=== PATIENT | female | born 1935 | race Caucasian/White ===

== ENCOUNTER 2016-08-21 07:08 | Day surgery (SDC) | payer MEDICARE ==
[~2016-08-21] VITALS: Ht 149.9 cm; Wt 53.5 kg
[~2016-08-21 07:08] MED LIST: ACETAMINOPHEN 325 MG TAB PO PRN; ASPI81TA85 PO; ATEN50TA2 PO; BSS with VANC/TOB/EPI for EYE CASES IR ONE; CLOP75TA2 PO; CYCLOPENTOLATE 2% OPHTH SOLN OS ONE; FOSA70TA PO; HEALON DUET (HEALON 10MG/ML 0.55ML & HEALON ENDOCOAT 30MG/ML 0.85ML) As Ordered ONE; LIDOCAINE 1% SDV 5 ML VIAL As Ordered ONE; LIDOCAINE 4% INJ 5 ML AMP OU ONE; LOSA50TA20 PO; MOXIFLOXACIN IN BSS 0.25MG/0.25ML INTRACAMERAL INJ (OR EYE ONLY)(J2280) As Ordered ONE; OFLOXACIN 0.3 % (OCUFLOX) OPTH SOL 5ML OS ONE; PHENYLEPHRINE 2.5% OPHTH SOL 2ML OS ONE; POVIDONE-IODINE 5% OPHTH PREP SOL 30ML As Ordered ONE; PRAV40TA2 PO; PROPARACAINE 0.5% OPHTH SOL 15ML OS PRN; TRIAMCINOLONE PRES FR 40 MG/ML 1ML(TRIESENCE)(OR EYE ONLY)(J3300 PER 1MG) As Ordered ONE; TROPICAMIDE 1% OPHTH SOLN 2 ML OS ONE
[2016-08-21] MEDS ORDERED: AcetaZOLAMIDE 500 MG ER CAP PO ONE (07:30)
[2016-08-21] MEDS ORDERED: TRIMETHOBENZAMIDE 300 MG CAP PO PRN (07:30)
[2016-08-21] MEDS ORDERED: KETOROLAC 0.5% OPHTH SOLN OS ONE (07:30)
[2016-08-21] MEDS ORDERED: fentaNYL 100 MCG/2 ML INJECTION (J3010) As Ordered ONE (09:46)
[2016-08-21] MEDS ORDERED: MIDAZOLAM INJ 2 MG/2 ML VIAL (J2250) As Ordered ONE (09:46)
[2016-08-21] MEDS ORDERED: ONDANSETRON 4MG/2ML VIAL (J2405) As Ordered ONE (11:03)
[2016-08-21 11:20] VITALS: BP 127/59
[2016-08-21] MEDS ORDERED: ONDANSETRON 4MG/2ML VIAL (J2405) IV PRN (11:30)
[2016-08-21] MEDS ORDERED: D5W/0.2% SODIUM CHLORIDE 1,000 ML IV SCH (11:30)
== END 2016-08-21 13:30 | disposition home or self-care (01) ==
LOC: M SDC 07:08
PROVIDERS: ATTEND Ophthalmology
DX: H26.9 Unspecified cataract (principal); I12.9 Hypertensive chronic kidney disease with stage 1 through stage 4 chronic kidney disease, or unspecified chronic kidney disease; E78.00 Pure hypercholesterolemia, unspecified; I73.9 Peripheral vascular disease, unspecified; R73.03 Prediabetes; M81.0 Age-related osteoporosis without current pathological fracture; F17.210 Nicotine dependence, cigarettes, uncomplicated; R53.83 Other fatigue; K59.04 Chronic idiopathic constipation; N18.3 Chronic kidney disease, stage 3 (moderate); M16.12 Unilateral primary osteoarthritis, left hip; Z79.899 Other long term (current) drug therapy; Z79.82 Long term (current) use of aspirin
CPT/HCPCS: 66984; J2250; J2280; J2405; J3010; J3300; V2632

== ENCOUNTER 2018-04-16 11:18 | Day surgery (SDC) | payer MEDICARE ==
[2018-04-16] MEDS: MORPHINE 2 MG/ML 1ML SYRINGE (J2270) IV ×2 (12:52→18:01)
[2018-04-16] MEDS: HYDROMORPHONE HCL 0.5 MG/ 0.5 ML SYRINGE (J1170 PER 1) IV (14:16)
[2018-04-16 15:39] LABS: ANION GAP 5 MEQ/L (8-16); BLOOD UREA NITROGEN 18 MG/DL (7-18); CALCIUM LEVEL 9.7 MG/DL (8.8-10.2); CARBON DIOXIDE LEVEL 28 MEQ/L (21-32); CHLORIDE LEVEL 109 MEQ/L (98-107); CREATININE FOR GFR 0.94 MG/DL (0.55-1.30); GLOMERULAR FILTRATION RATE > 60.0 (>32); GLUCOSE, FASTING 145 MG/DL (70-100); POTASSIUM SERUM 5.1 MEQ/L (3.5-5.1); SODIUM LEVEL 142 MEQ/L (136-145)
[2018-04-16] MEDS ORDERED: ONDANSETRON 4MG/2ML VIAL (J2405) As Ordered (16:22)
[2018-04-16] MEDS: ONDANSETRON 4MG/2ML VIAL (J2405) IV (16:24)
[2018-04-16] MEDS ORDERED: fentaNYL 100 MCG/2 ML INJECTION (J3010) As Ordered (19:43)
[2018-04-16] MEDS ORDERED: PROPOFOL 200 MG/20 ML VIAL As Ordered (19:43)
[2018-04-16] MEDS ORDERED: LR 1,000 ML IV (20:30)
[2018-04-16] MEDS ORDERED: ONDANSETRON 4MG/2ML VIAL (J2405) IV (20:30)
[2018-04-16] MEDS ORDERED: PERCOCET 5MG/325MG TAB PO (20:30)
[2018-04-16] MEDS ORDERED: fentaNYL 100 MCG/2 ML INJECTION (J3010) IV (20:30)
[2018-04-16] MEDS ORDERED: NS 1,000 ML IV (20:45)
== END 2018-04-16 21:25 | disposition home or self-care (01) ==
LOC: M SDC 21:25 → M ED 11:18 → M SDC 17:52
DX: S43.004A Unspecified dislocation of right shoulder joint, initial encounter (principal); W19.XXXA Unspecified fall, initial encounter; Y92.000 Kitchen of unspecified non-institutional (private) residence as the place of occurrence of the external cause; Y99.9 Unspecified external cause status; Y93.89 Activity, other specified; I10 Essential (primary) hypertension; E78.5 Hyperlipidemia, unspecified; Z79.899 Other long term (current) drug therapy; Z79.82 Long term (current) use of aspirin
CPT/HCPCS: 23655

== ENCOUNTER → 2018-06-06 | Outpatient (CLI) | payer MEDICARE ==
[~2018-06-06] MED LIST changes: -ACETAMINOPHEN 325 MG TAB PO PRN; -BSS with VANC/TOB/EPI for EYE CASES IR ONE; -CYCLOPENTOLATE 2% OPHTH SOLN OS ONE; -HEALON DUET (HEALON 10MG/ML 0.55ML & HEALON ENDOCOAT 30MG/ML 0.85ML) As Ordered ONE; -LIDOCAINE 1% SDV 5 ML VIAL As Ordered ONE; -LIDOCAINE 4% INJ 5 ML AMP OU ONE; -LOSA50TA20 PO; +LOSA50TA88 PO; -MOXIFLOXACIN IN BSS 0.25MG/0.25ML INTRACAMERAL INJ (OR EYE ONLY)(J2280) As Ordered ONE; -OFLOXACIN 0.3 % (OCUFLOX) OPTH SOL 5ML OS ONE; -PHENYLEPHRINE 2.5% OPHTH SOL 2ML OS ONE; -POVIDONE-IODINE 5% OPHTH PREP SOL 30ML As Ordered ONE; -PROPARACAINE 0.5% OPHTH SOL 15ML OS PRN; -TRIAMCINOLONE PRES FR 40 MG/ML 1ML(TRIESENCE)(OR EYE ONLY)(J3300 PER 1MG) As Ordered ONE; -TROPICAMIDE 1% OPHTH SOLN 2 ML OS ONE
--- NOTE | 2018-06-06 19:41 | REP ---
MRI RIGHT SHOULDER: TECHNIQUE: Axial T2 fat sat, coronal oblique T1, T2 fat sat, post arthrogram axial T1 fat sat, proton density, coronal oblique T1 fat sat, T2 sat, sagittal oblique T2 fat sat, ABER T1 fat sat. There are complete full thickness tears of the supraspinatus and infraspinatus tendon, with retraction of approximately 3.5 cm. There appears to be tendinosis of the subscapularis. There are moderate hypertrophic degenerative changes of the acromioclavicular joint with subchondral marrow edema. Acromion is type 1. Biceps tendon is seen within the bicipital groove, but superiorly the tendon appears to be quite thin with increased signal and I am suspicious of a tear of the proximal biceps tendon. I do not see an intact insertion onto the superior labrum. There appears to be a small Hill-Sachs deformity of the superolateral humeral head. No abnormal signal is seen in the deltoid muscle. There is fraying of the anterior superior aspect of the labrum. Otherwise no labral tear is seen. There is some minor subchondral marrow edema and cystic change in the humerus and glenoid. There is mild to moderate diffuse chondromalacia at the glenohumeral joint. Moderate fluid is seen in the joint extending to the subacromial subdeltoid bursae. IMPRESSION: Complete full thickness tear supraspinatus and infraspinatus tendons with retraction of the musculotendinous junction 3.5 cm. Tendinosis subscapularis. Moderate hypertrophic degenerative change acromioclavicular joint. I suspect a tear of the proximal biceps tendon. Small Hill-Sachs deformity of the humeral head. Mild fraying anterior superior labrum. Moderate fluid subacromial subdeltoid bursae. Electronically Signed by Maxx Frankel MD 06/06/2018 08:29 P
== END ==
LOC: M RAD 17:35
PROVIDERS: ATTEND Orthopaedic Surgery Sports Medicine
DX: S46.011A Strain of muscle(s) and tendon(s) of the rotator cuff of right shoulder, initial encounter (principal); S43.014A Anterior dislocation of right humerus, initial encounter; M75.120 Complete rotator cuff tear or rupture of unspecified shoulder, not specified as traumatic; M75.80 Other shoulder lesions, unspecified shoulder; M19.011 Primary osteoarthritis, right shoulder; X58.XXXA Exposure to other specified factors, initial encounter; Y92.9 Unspecified place or not applicable; Y93.9 Activity, unspecified; Y99.9 Unspecified external cause status

== ENCOUNTER 2019-07-30 21:34 | Emergency (ER) | payer MEDICARE ==
[~2019-07-30] VITALS: Ht 180.3 cm; Wt 56.8 kg
[2019-07-30] MEDS ORDERED: MORPHINE 2 MG/ML 1ML VIAL (J2270) IV ONE (22:30)
[2019-07-30 23:24] LABS: BASO % 0.4 % (0.0-1.0); EOS # 0.2 10^3/uL (0.0-0.5); EOS % 1.6 % (0.0-3.0); HEMATOCRIT 34.8 % (36.0-47.0); HEMOGLOBIN 10.6 g/dl (12.0-15.5); LYMPH # 1.3 10^3/uL (1.5-5.0); LYMPH % 11.4 % (24.0-44.0); MEAN CORPUSCULAR HEMOGLOBIN 25.5 pg (27.0-33.0); MEAN CORPUSCULAR HGB CONC 30.5 g/dl (32.0-36.5); MEAN CORPUSCULAR VOLUME 83.9 fl (80.0-96.0); MONO # 0.9 10^3/uL (0.0-0.8); MONO % 8.1 % (0.0-5.0); NEUTROPHILS # 8.5 10^3/uL (1.5-8.5); NEUTROPHILS % 77.9 % (36.0-66.0); PLATELET COUNT, AUTOMATED 278 10^3/uL (150-450); RED BLOOD COUNT 4.15 10^6/uL (4.00-5.40); WHITE BLOOD COUNT 10.9 10^3/uL (4.0-10.0)
[2019-07-30] MEDS ORDERED: ISOVUE-370 76% 100ML VIAL (Q9967) As Ordered ONE (23:32)
[2019-07-30 23:35] LABS: INR 1.03; PARTIAL THROMBOPLASTIN TIME 35.3 SECONDS (25.0-38.4); PROTHROMBIN TIME 13.2 SECONDS (11.8-14.0)
[2019-07-30 23:45] LABS: CALCIUM LEVEL 9.7 MG/DL (8.8-10.2); CREATININE FOR GFR 1.26 MG/DL (0.55-1.30); GLOMERULAR FILTRATION RATE 43.1 (>32)
--- NOTE | 2019-07-31 00:19 | REPVR ---
PROCEDURE INFORMATION: Exam: CT Chest With Contrast Exam date and time: 07/30/2019 10:19 PM Age: 83 years old Clinical indication: Chest pain; Type not specified; Patient HX: Tripped and fell; Additional info: Trauma TECHNIQUE: Imaging protocol: Computed tomography of the chest with intravenous contrast. Radiation optimization: All CT scans at this facility use at least one of these dose optimization techniques: automated exposure control; mA and/or kV adjustment per patient size (includes targeted exams where dose is matched to clinical indication); or iterative reconstruction. Contrast material: ISO; Contrast volume: 100 ml; Contrast route: AC; COMPARISON: CR PORTABLE CHEST X-RAY 04/16/2018 2:39 PM FINDINGS: Thyroid: Enlarged multinodular thyroid gland, incompletely visualized. Lungs: No evidence of lung contusion, aspiration or concerning lung mass. No central endobronchial lesion. Pleural space: No hemothorax or pneumothorax. Heart: No pericardial effusion or overt cardiac enlargement. Mediastinum: No mediastinal hematoma. Aorta: Thoracic aorta shows no evidence of acute traumatic injury or dissection. Atherosclerotic changes are present in the aorta. No focal aneurysm. Great vessels off aortic arch: Atherosclerotic calcifications in the coronary vessels. Lymph nodes: Small, nonspecific mediastinal nodes are present. Bones/joints: No acute displaced fractures involving ribs, thoracic spine or shoulder girdle. Soft tissues: No asymmetric abnormality of the extrathoracic soft tissues. IMPRESSION: 1. No CT evidence of acute thoracic trauma 2. Multinodular thyroid gland. This can be followed up with outpatient CT Electronically signed by: Wilfredo Valerio On 07/31/2019 00:19:17 AM
--- NOTE | 2019-07-31 00:20 | REPVR ---
PROCEDURE INFORMATION: Exam: CT Head Without Contrast Exam date and time: 07/30/2019 10:19 PM Age: 83 years old Clinical indication: Injury or trauma; Fall; Initial encounter; Blunt trauma (contusions or hematomas); Consciousness not specified; Injury details: Tripped and fell TECHNIQUE: Imaging protocol: Computed tomography of the head without contrast. Radiation optimization: All CT scans at this facility use at least one of these dose optimization techniques: automated exposure control; mA and/or kV adjustment per patient size (includes targeted exams where dose is matched to clinical indication); or iterative reconstruction. COMPARISON: CT Head without contrast 04/16/2018 1:05 PM FINDINGS: Brain: No intracranial mass, mass effect or midline shift. No acute intracranial hemorrhage. No CT evidence of acute cortical infarct. Mild decreased attenuation in periventricular/centrum semiovale white matter. Calcifications in the issa and thalami, unchanged Ventricles: Ventricles, cisterns and sulci are symmetrically prominent. Bones/joints: No calvarial fracture or destructive process. Sinuses: Imaged paranasal sinuses are clear. Mastoid air cells: Left mastoid air cells are opacified. No middle ear involvement Orbits: Imaged orbits are unremarkable. Soft tissues: No focal extracranial soft tissue swelling. IMPRESSION: No acute or concerning focal intracranial abnormality. Electronically signed by: Wilfredo Valerio On 07/31/2019 00:20:33 AM
--- NOTE | 2019-07-31 00:23 | REPVR ---
PROCEDURE INFORMATION: Exam: CT Cervical Spine Without Contrast Exam date and time: 07/30/2019 10:19 PM Age: 83 years old Clinical indication: Neck pain; Patient HX: Tripped and fell; Additional info: Trauma TECHNIQUE: Imaging protocol: Computed tomography images of the cervical spine without contrast. Radiation optimization: All CT scans at this facility use at least one of these dose optimization techniques: automated exposure control; mA and/or kV adjustment per patient size (includes targeted exams where dose is matched to clinical indication); or iterative reconstruction. COMPARISON: CT Spine,cervical w/o contrast 04/16/2018 1:05 PM FINDINGS: Vertebrae: No traumatic segmental malalignment of cervical spine or craniocervical junction. Vertebral body height is maintained at all levels. No acute fracture. No destructive or blastic cervical spine osseous lesion. Discs/Spinal canal/Neural foramina: Intervertebral disc height is decreased at multiple levels, with typical degenerative pattern and associated endplate, articular pillar and uncovertebral spurs. Significant spinal canal stenosis C3-C4 secondary to posterior osteophytes and mild degenerative retrolisthesis. Similar changes at C4-C5. Multilevel osseous neural foraminal stenoses, most severe at C3-C4 bilaterally Prevertebral Space: Prevertebral soft tissues demonstrate no asymmetry. Soft tissues: Unremarkable. Thyroid: Thyroid gland is enlarged and multi-nodular. Lungs: No concerning abnormality of the imaged lung apices. IMPRESSION: 1. No acute fracture or traumatic subluxation of the cervical spine. 2. 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 Electronically signed by: Wilfredo Valerio On 07/31/2019 00:22:53 AM
--- NOTE | 2019-07-31 00:27 | REPVR ---
PROCEDURE INFORMATION: Exam: CT Abdomen And Pelvis With Contrast Exam date and time: 07/30/2019 10:19 PM Age: 83 years old Clinical indication: Abdominal pain; Generalized; Patient HX: Tripped and fell; Additional info: Trauma TECHNIQUE: Imaging protocol: Computed tomography of the abdomen and pelvis with intravenous contrast. Radiation optimization: All CT scans at this facility use at least one of these dose optimization techniques: automated exposure control; mA and/or kV adjustment per patient size (includes targeted exams where dose is matched to clinical indication); or iterative reconstruction. Contrast material: ISO; Contrast volume: 100 ml; Contrast route: AC; COMPARISON: No relevant prior studies available. FINDINGS: Lungs: No suspicious mass or airspace process in the visualized lung bases. Liver: Liver is unremarkable aside from a 6 mm cyst. Gallbladder and bile ducts: Gallstones are present in the gallbladder lumen. No adjacent fluid or duct dilatation. Pancreas: Pancreas appears normal. No focal mass or peripancreatic inflammation. Spleen: Spleen appears homogeneous without focal mass. Adrenals: Adrenal glands are normal in appearance. Kidneys and ureters: Kidneys demonstrate left renal cysts of simple fluid density measuring up to 2.4 cm, and a nonobstructive lower pole right renal stone. No hydronephrosis or ureter stone. Stomach and bowel: Stomach is distended with ingested material and fluid. No evidence of small bowel obstruction. Diverticular changes are present within the colon without inflammation. Appendix: Normal caliber appendix is identified, with no adjacent inflammation. Intraperitoneal space: No pneumoperitoneum. Vasculature: Atherosclerotic change present in the aorta, without aneurysm. Main portal and splenic veins enhance normally. Left iliac to right femoral artery vascular graft with normal enhancement Bladder: Urinary bladder appears normal. Reproductive: Uterus is surgically absent. Bones/joints: Degenerative changes are seen in the lumbar spine with disc height loss, endplate osteophytes and hypertrophic facet arthropathy. No acute pelvic fracture or malalignment. Soft tissues: No intra-abdominal hematoma. No pelvic hematoma. IMPRESSION: 1. No CT evidence of acute abdominal or pelvic trauma. 2. Incidental findings, as indicated above. Electronically signed by: Wilfredo Valerio On 07/31/2019 00:26:55 AM
--- NOTE | 2019-07-31 00:28 | REPVR ---
PROCEDURE INFORMATION: Exam: CT Thoracic Spine Without Contrast Exam date and time: 07/30/2019 10:19 PM Age: 83 years old Clinical indication: Pain; Patient HX: Tripped and fell; Additional info: Trauma TECHNIQUE: Imaging protocol: Computed tomography images of the thoracic spine without contrast. Radiation optimization: All CT scans at this facility use at least one of these dose optimization techniques: automated exposure control; mA and/or kV adjustment per patient size (includes targeted exams where dose is matched to clinical indication); or iterative reconstruction. COMPARISON: No relevant prior studies available. FINDINGS: No segmental malalignment of the vertebral bodies. Vertebral body height is maintained. No fracture or destructive process. Intervertebral disc height is maintained, appropriate for age. No paraspinous soft tissue mass or focal soft tissue edema. IMPRESSION: No fracture or other acute abnormality involving the thoracic spine. Electronically signed by: Wilfredo Valerio On 07/31/2019 00:27:49 AM
--- NOTE | 2019-07-31 00:30 | REPVR ---
PROCEDURE INFORMATION: Exam: CT Lumbar Spine Without Contrast Exam date and time: 07/30/2019 10:19 PM Age: 83 years old Clinical indication: Low back pain; Patient HX: Tripped and fell; Additional info: Trauma TECHNIQUE: Imaging protocol: Computed tomography images of the lumbar spine without contrast. Radiation optimization: All CT scans at this facility use at least one of these dose optimization techniques: automated exposure control; mA and/or kV adjustment per patient size (includes targeted exams where dose is matched to clinical indication); or iterative reconstruction. COMPARISON: No relevant prior studies available. FINDINGS: No segmental lumbar vertebral malalignment. Vertebral body height and morphology is maintained. No acute fracture or destructive process. Intervertebral disc height is maintained for age aside from L5-S1 disc height loss with endplate osteophytes and hypertrophic facet arthropathy. No dilatation of the imaged distal abdominal aorta. No significant abnormality of the imaged retroperitoneum. IMPRESSION: No fracture or other acute abnormality involving the lumbar spine. Electronically signed by: Wilfredo Valerio On 07/31/2019 00:29:50 AM
[2019-07-31 01:36] VITALS: BP 136/72
--- NOTE | 2019-07-31 10:41 | ED PDOC ---
Post-Departure Follow-Up Braden Moore faxed formal report of ct c spine for fu Farshad King MD Jul 31, 2019 10:41
--- NOTE | 2019-07-31 10:42 | ED PDOC ---
Post-Departure Follow-Up byron capellan faxed formal report of ct chest for fu Farshad King MD Jul 31, 2019 10:42
== END 2019-07-31 01:38 | disposition home or self-care (01) ==
LOC: M ED 21:34
DX: S20.219A Contusion of unspecified front wall of thorax, initial encounter (principal); W18.39XA Other fall on same level, initial encounter; I25.10 Atherosclerotic heart disease of native coronary artery without angina pectoris; M81.0 Age-related osteoporosis without current pathological fracture; Z79.01 Long term (current) use of anticoagulants; Z79.82 Long term (current) use of aspirin; Z79.899 Other long term (current) drug therapy
CPT/HCPCS: 70450; 71260; 72125; 72128; 72131; 74177; 80048; 85025; 85610; 85730; 93041; 94760; 96374; 99284; J2270; Q9967

== ENCOUNTER 2019-11-07 19:10 | Emergency (ER) | payer MEDICARE ==
[~2019-11-07] VITALS: Ht 149.9 cm; Wt 59.1 kg
[2019-11-07] MEDS ORDERED: INCR1INH (19:28)
[2019-11-07] MEDS ORDERED: ALEN70TA74 (19:28)
[2019-11-07 20:07] VITALS: BP 192/82
== END 2019-11-07 20:57 | disposition left against medical advice (07) ==
LOC: M ED 19:10
DX: Z53.21 Procedure and treatment not carried out due to patient leaving prior to being seen by health care provider (principal)

== ENCOUNTER 2021-04-05 07:48 | Inpatient (IN) | payer MEDICARE ==
[~2021-04-05] VITALS: Ht 152.4 cm; Wt 50.4 kg
[2021-04-05] VITALS (10 sets, daily range): BP systolic 107–164; BP diastolic 46–123; O2SAT 93
[~2021-04-05 07:48] MED LIST changes: +ALEN70TA82; -ASPI81TA85 PO; +ASPI81TA86 PO; +INCR1INH
[2021-04-05] MEDS ORDERED: IPRA0.00 (07:58)
--- OUTSIDE RECORDS SUMMARY | 2021-04-05 09:52 | CCD ---
Author Author [facility] Organization [facility] Address Unknown Phone Unavailable Care Team Providers Care Sales Representative [employer] Name Role Phone Oscar, P Braden DO Unavailable Unavailable Oscar, P Braden DO Unavailable Unavailable Oscar, P Braden DO Unavailable Unavailable Oscar, P Braden DO Unavailable Unavailable Oscar, P Braden DO Unavailable Unavailable Oscar, P Braden DO Unavailable Unavailable Oscar, P Braden DO Unavailable Unavailable Oscar, P Braden DO Unavailable Unavailable Oscar, P Braden DO Unavailable Unavailable Oscar, P Braden DO Unavailable Unavailable Oscar, P Braden DO Unavailable Unavailable Oscar, P Braden DO Unavailable Unavailable Oscar, P Braden DO Unavailable Unavailable Oscar, P Braden DO Unavailable Unavailable Oscar, P Braden DO Unavailable Unavailable Oscar, P Braden DO Unavailable Unavailable Oscar, P Braden DO Unavailable Unavailable Oscar, P Braden DO Unavailable Unavailable Oscar, P Braden DO Unavailable Unavailable Oscar, P Braden DO Unavailable Unavailable Oscar, P Braden DO Unavailable Unavailable Oscar, P Braden DO Unavailable Unavailable Oscar, P Braden DO Unavailable Unavailable Oscar, P Braden DO Unavailable Unavailable Oscar, P Braden DO Unavailable Unavailable Oscar, P Braden DO Unavailable Unavailable Oscar, P Braden DO Unavailable Unavailable Oscar, P Braden DO Unavailable Unavailable Oscar, P Braden DO Unavailable Unavailable Oscar, P Braden DO Unavailable Unavailable Oscar, P Braden DO Unavailable Unavailable Oscar, P Braden DO Unavailable Unavailable Oscar, P Braden DO Unavailable Unavailable Oscar, P Braden DO Unavailable Unavailable Oscar, P Braden DO Unavailable Unavailable Oscar, P Braden DO Unavailable Unavailable Oscar, P Braden DO Unavailable Unavailable Oscar, P Braden DO Unavailable Unavailable Oscar, P Braden DO Unavailable Unavailable Oscar, P Braden DO Unavailable Unavailable Oscar, P Braden DO Unavailable Unavailable Oscar, P Braden DO Unavailable Unavailable Oscar, P Braden DO Unavailable Unavailable Oscar, P Braden DO Unavailable Unavailable Oscar, P Braden DO Unavailable Unavailable Oscar, P Braden DO Unavailable Unavailable Oscar, P Braden DO Unavailable Unavailable Oscar, P Braden DO Unavailable Unavailable Oscar, P Braden DO Unavailable Unavailable Oscar, P Braden DO Unavailable Unavailable Oscar, P Braden DO Unavailable Unavailable Oscar, P Braden DO Unavailable Unavailable Oscar, P Braden DO Unavailable Unavailable Oscar, P Braden DO Unavailable Unavailable Oscar, P Braden DO Unavailable Unavailable Oscar, P Braden DO Unavailable Unavailable Oscar, P Braden DO Unavailable Unavailable Oscar, P Braden DO Unavailable Unavailable Oscar, P Braden DO Unavailable Unavailable Oscar, P Braden DO Unavailable Unavailable Oscar, P Braden DO Unavailable Unavailable Oscar, P Braden DO Unavailable Unavailable Oscar, P Braden DO Unavailable Unavailable Oscar, P Braden DO Unavailable Unavailable Oscar, P Braden DO Unavailable Unavailable Oscar, P Braden DO Unavailable Unavailable Oscar, P Braden DO Unavailable Unavailable Oscar, P Braden DO Unavailable Unavailable Oscar, P Braden DO Unavailable Unavailable Oscar, P Braden DO Unavailable Unavailable Oscar, P Braden DO Unavailable Unavailable Re-disclosure Warning The records that you are about to access may contain information from federally-assisted alcohol or drug abuse programs. If such information is present, then the following federally mandated warning applies: This information has been disclosed to you from records protected by federal confidentiality rules (42 CFR part 2). The federal rules prohibit you from making any further disclosure of this information unless further disclosure is expressly permitted by the written consent of the person to whom it pertains or as otherwise permitted by 42 CFR part 2. A general authorization for the release of medical or other information is NOT sufficient for this purpose. The Federal rules restrict any use of the information to criminally investigate or prosecute any alcohol or drug abuse patient.The records that you are about to access may contain highly sensitive health information, the redisclosure of which is protected by Article 27-F of the [facility] Public Health law. If you continue you may have access to information: Regarding HIV / AIDS; Provided by facilities licensed or operated by the [facility] Office of Mental Health; or Provided by the [facility] Office for People With Developmental Disabilities. If such information is present, then the following [facility] mandated warning applies: This information has been disclosed to you from confidential records which are protected by state law. State law prohibits you from making any further disclosure of this information without the specific written consent of the person to whom it pertains, or as otherwise permitted by law. Any unauthorized further disclosure in violation of state law may result in a fine or mcc sentence or both. A general authorization for the release of medical or other information is NOT sufficient authorization for further disc losure. Allergies and Adverse Reactions Type Description Substance Reaction Status Data Source(s ) Food allergy No Known Food Allergies No Known Food Allergies [facility] Family History Family Member Name Family Member Gender Family Member Status Date o f Status Description Data Source(s) Unknown Condition [facility] Unknown Condition [facility] Condition [facility] Condition [facility] Condition [facility] Condition [facility] Condition [facility] Unknown Male Problem [facility] ([facility]) Encounters Encounter Providers Location Date Indications Data Source(s ) Outpatient Attender: Braden Ruiz: Braden Moore DO 01/21/2021 11:23:00 AM EDT 01/21/2021 12:09:00 PM EDT [facility] Outpatient Attender: Braden Moore DO 01/11/2021 12:22:[address] [facility] Outpatient Attender: Braden Ruiz: Braden Moore DO 01/11/2021 11:17:00 AM EDT 01/11/2021 11:54:00 AM EDT [facility] Outpatient Attender: Braden Ruiz: Braden Moore DO 08/19/2020 10:11:00 AM EDT 08/19/2020 11:09:00 AM EDT [facility] Outpatient Attender: Braden Ruiz: Braden Moore DO 08/06/2020 09:45:00 AM EST - 08/06/2020 11:08:00 AM EST [facility] Outpatient Attender: Braden Moore DO 06/23/2020 12:10 :00 PM EST W/ SEE ORDER/I10 [facility] W/ SEE ORDER/I10 Outpatient Attender: Braden Hernandezer: Braden Oscar LAWRENCE 06/08/2020 09:48:00 AM EST - 06/08/2020 11:46:00 AM EST [facility] Outpatient Attender: Braden Moore 05/31/2020 12:54:00 PM EST [facility] Immunizations Vaccine Date Status Description Data Source(s) COVID-19 Pfizer 08/27/2020 12:00:00 AM EDT completed [facility] COVID-19 VACCINE Pfizer 08/27/2020 12:00:00 AM EDT completed [facility] Vaccine Series Complete: YESThis Data wa s Submitted to [facility] Via [employer]. COVID-19 Pfizer 08/06/2020 12:00:00 AM EST completed [facility] COVID-19 VACCINE Pfizer 08/06/2020 12:00:00 AM EST completed [facility] Vaccine Series Complete: NOThis Data was Submitted to [facility] Via [employer]. Medications Medication Brand Name Start Date Product Form Dose Route Admi nistrative Instructions Pharmacy Instructions Status Indications Reaction Description Data Source(s) clopidogrel 75 MG Oral Tablet Clopidogrel Clopidogrel 12/31/2020 09:24:14 [address] EDT [address] [facility] Losartan Potassium 50 MG Oral Tablet Losartan 11/22/2020 12:59:[address]T [address] [facility] Albuterol 0.833 MG/ML / Ipratropium Brom portia 0.167 MG/ML Inhalant Solution Ipratropium-Albuterol Ipratropium-Albuterol 08/09/2020 10:23:04 AM EDT [address] [facility] Albuterol 0.833 MG/ML / Ipratropium Brom portia 0.167 MG/ML Inhalant Solution Ipratropium-Albuterol Ipratropium-Albuterol 08/09/2020 10:23:04 AM EDT [address] [facility] Albuterol 0.833 MG/ML / Ipratropium Brom portia 0.167 MG/ML Inhalant Solution Ipratropium-Albuterol Ipratropium-Albuterol 08/06/2020 11:05:42 AM EST [address] [facility] Albuterol 0.833 MG/ML / Ipratropium Brom portia 0.167 MG/ML Inhalant Solution Ipratropium-Albuterol Ipratropium-Albuterol 08/06/2020 11:05:42 AM EST [address] [facility] Albuterol 0.833 MG/ML / Ipratropium Brom portia 0.167 MG/ML Inhalant Solution Ipratropium-Albuterol Ipratropium-Albuterol 08/06/2020 11:05:42 AM EST [address] [facility] Prednisone 20 MG Oral Tablet Prednisone 08/06/2020 11:04:59 AM EST 20 MG active [facility] Prednisone 20 MG Oral Tablet Prednisone 08/06/2020 11:04:59 AM EST 20 MG completed [facility] Prednisone 20 MG Oral Tablet Prednisone 08/06/2020 11:04:59 AM EST 20 MG active [facility] Azithromycin 250 MG Oral Tablet Azithromycin 08/06/2020 11:04:49 AM EST 250 MG active [facility] Azithromycin 250 MG Oral Tablet Azithromycin 08/06/2020 11:04:49 AM EST [address] [facility] Azithromycin 250 MG Oral Tablet Azithromycin 08/06/2020 11:04:49 AM EST [address] [facility] Losartan Potassium 50 MG Oral Tablet Losartan 08/06/2020 10:25: 20 AM EST 50 MG active [facility] Losartan Potassium 50 MG Oral Tablet Losartan 08/06/2020 10:25: 20 AM EST [address] [facility] Losartan Potassium 50 MG Oral Tablet Losartan 08/06/2020 10:25: 20 AM EST 50 MG active [facility] clopidogrel 75 MG Oral Tablet Clopidogrel Clopidogrel 08/06/2020 10:25:12 AM EST [address] [facility] clopidogrel 75 MG Oral Tablet Clopidogrel Clopidogrel 08/06/2020 10:25:12 AM EST [address] [facility] clopidogrel 75 MG Oral Tablet Clopidogrel Clopidogrel 08/06/2020 10:25:12 AM EST 75 MG completed [facility] Atenolol 50 MG Oral Tablet Atenolol 08/06/2020 10:25:01 AM EST 0 active [facility] Atenolol 50 MG Oral Tablet Atenolol 08/06/2020 10:25:01 AM EST 0 active [facility] Atenolol 50 MG Oral Tablet Atenolol 08/06/2020 10:25:01 AM EST 0 active [facility] ferrous sulfate 325 MG Oral Tablet Ferrous Sulfate Ferrous S ulfate 08/06/2020 10:20:08 AM EST 325 MG active [facility] ferrous sulfate 325 MG Oral Tablet Ferrous Sulfate Ferrous S ulfate 08/06/2020 10:20:08 AM EST 325 MG completed [facility] ferrous sulfate 325 MG Oral Tablet Ferrous Sulfate Ferrous S ulfate 08/06/2020 10:20:08 AM EST 325 MG active [facility] Atenolol 50 MG Oral Tablet Atenolol 08/03/2020 11:16:39 AM EST 0 completed [facility] Atenolol 50 MG Oral Tablet Atenolol 08/03/2020 11:16:39 AM EST 0 completed [facility] Atenolol 50 MG Oral Tablet Atenolol 08/03/2020 11:16:39 AM EST 0 completed [facility] Calcium ascorbate 500 MG Oral Tablet Ascorbate Calcium (Vitamin C) Ascorbate Calcium (Vitamin C) 06/08/2020 10:17:08 AM EST 500 MG ac [facility] Calcium ascorbate 500 MG Oral Tablet Ascorbate Calcium (Vitamin C) Ascorbate Calcium (Vitamin C) 06/08/2020 10:17:08 AM EST 500 MG ac [facility] Calcium ascorbate 500 MG Oral Tablet Ascorbate Calcium (Vitamin C) Ascorbate Calcium (Vitamin C) 06/08/2020 10:17:08 AM EST 500 MG ac [facility] Calcium ascorbate 500 MG Oral Tablet Ascorbate Calcium (Vitamin C) Ascorbate Calcium (Vitamin C) 06/08/2020 10:17:08 AM EST 500 MG ac [facility] Alendronic acid 70 MG Oral Tablet Alendronate Alendronate 04/13/2020 06:23:15 PM EST 70 MG completed [facility] Alendronic acid 70 MG Oral Tablet Alendronate Alendronate 04/13/2020 06:23:15 PM EST 70 MG completed [facility] Alendronic acid 70 MG Oral Tablet Alendronate Alendronate 04/13/2020 06:23:15 PM EST 70 MG completed [facility] Alendronic acid 70 MG Oral Tablet Alendronate Alendronate 04/13/2020 06:23:15 PM EST 70 MG completed [facility] Losartan Potassium 50 MG Oral Tablet Losartan 10/24/2019 10:33: 32 AM EDT [address] [facility] Losartan Potassium 50 MG Oral Tablet Losartan 10/24/2019 10:33: 32 AM EDT [address] [facility] Losartan Potassium 50 MG Oral Tablet Losartan 10/24/2019 10:33: 32 AM EDT [address] [facility] clopidogrel 75 MG Oral Tablet Clopidogrel Clopidogrel 10/24/2019 10:33:29 AM EDT 75 MG completed [facility] clopidogrel 75 MG Oral Tablet Clopidogrel Clopidogrel 10/24/2019 10:33:29 AM EDT 75 MG completed [facility] clopidogrel 75 MG Oral Tablet Clopidogrel Clopidogrel 10/24/2019 10:33:29 AM EDT 75 MG completed [facility] Atenolol 50 MG Oral Tablet Atenolol 10/24/2019 10:33:24 AM EDT 5 0 MG completed [facility] Atenolol 50 MG Oral Tablet Atenolol 10/24/2019 10:33:24 AM EDT 5 0 MG completed [facility] Atenolol 50 MG Oral Tablet Atenolol 10/24/2019 10:33:24 AM EDT 5 0 MG completed [facility] 30 ACTUAT umeclidinium 0.0625 MG/ACTUAT Dry Powder Inhaler Umeclidinium (Incruse Ellipta) 62.5 mcg/actuation blister with device Umeclidinium (Incruse Ellipta) 62.5 mcg/actuation blister with device 10/02/2019 06:27:00 AM EDT 1 IN H completed [facility] 30 ACTUAT umeclidinium 0.0625 MG/ACTUAT Dry Powder Inhaler Umeclidinium (Incruse Ellipta) 62.5 mcg/actuation blister with device Umeclidinium (Incruse Ellipta) 62.5 mcg/actuation blister with device 10/02/2019 06:27:00 AM EDT 1 IN H completed [facility] 30 ACTUAT umeclidinium 0.0625 MG/ACTUAT Dry Powder Inhaler Umeclidinium (Incruse Ellipta) 62.5 mcg/actuation blister with device Umeclidinium (Incruse Ellipta) 62.5 mcg/actuation blister with device 10/02/2019 06:27:00 AM EDT 1 IN H completed [facility] 30 ACTUAT umeclidinium 0.0625 MG/ACTUAT Dry Powder Inhaler Umeclidinium (Incruse Ellipta) 62.5 mcg/actuation blister with device Umeclidinium (Incruse Ellipta) 62.5 mcg/actuation blister with device 10/02/2019 06:27:00 AM EDT 1 IN H completed [facility] atorvastatin 80 MG Oral Tablet Atorvastatin Atorvastatin 03/03/2019 06:09:30 AM EDT 80 MG completed [facility] atorvastatin 80 MG Oral Tablet Atorvastatin Atorvastatin 03/03/2019 06:09:30 AM EDT 80 MG completed [facility] atorvastatin 80 MG Oral Tablet Atorvastatin Atorvastatin 03/03/2019 06:09:30 AM EDT 80 MG completed [facility] atorvastatin 80 MG Oral Tablet Atorvastatin Atorvastatin 03/03/2019 06:09:30 AM EDT 80 MG completed [facility] Cholecalciferol [id number] UNT Oral Capsule Cholecalciferol (Vitamin D3) Cholecalciferol (Vitamin D3) 12/11/2016 03:53:00 PM EDT 1 CAP completed [facility] Cholecalciferol 40942 UNT Oral Capsule Cholecalciferol (Vitamin D3) Cholecalciferol (Vitamin D3) 12/11/2016 03:53:00 PM EDT 1 CAP completed [facility] Cholecalciferol 79486 UNT Oral Capsule Cholecalciferol (Vitamin D3) Cholecalciferol (Vitamin D3) 12/11/2016 03:53:00 PM EDT 1 CAP completed [facility] Cholecalciferol 64244 UNT Oral Capsule Cholecalciferol (Vitamin D3) Cholecalciferol (Vitamin D3) 12/11/2016 03:53:00 PM EDT 1 CAP completed [facility] Calcium Carbonate 1500 MG / Cholecalcife rol 400 UNT Oral Capsule Calcium Carbonate-Vitamin D3 Calcium Carbonate-Vitamin D3 12/09/2015 06:35:00 PM EDT [address] [facility] Calcium Carbonate 1500 MG / Cholecalcife rol 400 UNT Oral Capsule Calcium Carbonate-Vitamin D3 Calcium Carbonate-Vitamin D3 12/09/2015 06:35:00 PM EDT [address] [facility] Calcium Carbonate 1500 MG / Cholecalcife rol 400 UNT Oral Capsule Calcium Carbonate-Vitamin D3 Calcium Carbonate-Vitamin D3 12/09/2015 06:35:00 PM EDT [address] [facility] Calcium Carbonate 1500 MG / Cholecalcife rol 400 UNT Oral Capsule Calcium Carbonate-Vitamin D3 Calcium Carbonate-Vitamin D3 12/09/2015 06:35:00 PM EDT [address] [facility] Insurance Providers Payer name Policy type / Coverage type Policy ID Covered green party ID Covered green party's relationship to sher Policy Sher Plan Information Medicare [place] Medicare Primary [id number] Self [id number] MEDICARE [id number] SP [id number] MEDICARE [id number] SP [id number] A MEDICARE [id number] Armida [id number] MEDICARE A [id number] Self [id number] A Medicare [place] Primary [id number] Self [id number] MEDICARE [id number] SP [id number] A Medicare [place] Medicare Primary [id number] Self [id number] [employer] [id number] Self [id number] [facility] [id number] Armida [id number] [employer] [id number] Self [id number] [employer] [id number] Self [id number] AARP U [id number] Self [id number] AARP U [id number] Self [id number] [employer] OPTIONS [id number] SP [id number] [employer] [id number] SP [id number] [employer] [id number] SP [id number] MEDICARE PART A -I/P [id number] 18 [id number] MEDICARE PART A -O/P [id number] 18 [id number] [facility] HE[facility] CARE OPTIONS-O/P [id number] 18 [id number] [facility] HE[facility] C[facility] OPTIONS -RECURRING [id number] 18 [id number] MEDICARE -RECURRING [id number] 18 [id number] MEDICARE PART A -O/P [id number] 18 [id number] MEDICARE C [id number] S [id number] [facility] C[facility] OPTIONS-CLINIC [id number] 18 [id number] MEDICARE PART A -CLINIC [id number] 18 [id number] MEDICARE -O/P [id number] 18 [id number] [facility] HEALTH CARE OPTIONS [id number] SP [id number] AARP O [id number] S [id number] AARP S [id number] S [id number] MEDICARE P [id number] S [id number] A [id number] A Problems, Conditions, and Diagnoses No Information Surgeries/Procedures Procedure Description Date Indications Data Source(s) Computerized axial tomography of thorax with contrast (proce dure) 06/23/2020 02:47:00 PM [facility] Computerized axial tomography of thorax with contrast (proce dure) 06/23/2020 02:47:00 PM [facility] Computerized axial tomography of thorax with contrast (proce dure) 06/23/2020 02:47:00 PM [facility] Computed tomography of abdomen and pelvis with contrast (pro cedure) 06/23/2020 02:46:00 PM [facility] Computed tomography of abdomen and pelvis with contrast (pro cedure) 06/23/2020 02:46:00 PM [facility] Computed tomography of abdomen and pelvis with contrast (pro cedure) 06/23/2020 02:46:00 PM [facility] Results ID Date Data Source [id number] 01/21/2021 11:32:00 AM EDT [facility] Patient Name: FELIX QUIROZ : 1935 Sex: F Pt Unit #: [id number] Location:[facility] Provider: Visit Date/Time: 01/21/21 Primary Insurance: MEDICARE [place] Secondary Insurance: AARP Intake Vital Signs 01/21/21 11:33 Current Height 5 ft 4 in Current Weight 108 lb Weight Measurement Method Standing Scale BMI 18.5 BP 116/46 Blood Pressure Location Rt brachial Position Sitting Respiration 18 Pulse 60 Pulse Source Pulse Oximeter Temp 98.1 F Temp Source Oral Pulse Oximetry (%) 98 Oxygen Delivery Method room air Intake Visit Reasons: Lump/mass Nurse Note: States that the lump is gone she does not even know where it was.No swallowing difficulties Balance Sheet Analyst Required: No Accompanied by: Daughter Is patient in pain?: No Allergies No Known Drug Allergies Allergy (Verified 10/27/15 21:39) No Known Food Allergies Allergy (Unverified 01/11/21 11:26) HIV Testing Offer - ages 13-64 Requirement for HIV testing offer been met?: Not in age range Do you need a note to return Do you need a note to return to daycare/school/sports/work: No Coronavirus Screening Screening Are you currently positive or on isolation for COVID ?: No Do you have any NEW signs of one or more of the following?: no symptoms Do you have NEW signs of at least two of the following?: no symptoms HPI Additional HPI HPI Details: 85 YO female with lump in neck. CT done and no findings. I saw her for this 01/11/21 and placed ary Augmentin. She is here for f/u. [facility] Medical History (Updated 01/11/21 @ 11:55 by Braden Moore DO) Cardiac Disorder Chronic constipation Chronic kidney disease, stage III (moderate) Claudication Cyst Cyst of neck Essential (primary) hypertension Fatigue Fatigue Hearing deficit Hypercalcemia Hypertension Hyperthyroidism Microcytic anemia Osteoporosis past history AAA repair and angioplasty L leg Peripheral arterial disease Peripheral vascular disease Prediabetes Primary osteoarthritis of left hip Pure hypercholesterolemia Repeated falls S/P AAA repair Tobacco dependence Weight loss Surgical History (Updated 12/24/18 @ 07:59 by Izzy Birmingham) Appendectomy Carotid endarterectomy Cataract extraction and insertion of intraocular lens History of - surgery History of - surgery History of hysterectomy Status post tonsillectomy Family History Mother Diabetes Father No problems noted. Sister No problems noted. Sister No problems noted. Sister Abdominal aortic aneurysm Stroke Brother No problems noted. Social History (Updated 01/11/21 @ 11:27 by Izzy Birmingham) Does the Patient have a Healthcare Proxy: Yes Does Patient have a DNR?: No Does Patient have a Living Will?: No Hx Recent Travel (where): No Smoking Status: Current every day smoker tobacco type: cigarettes Tobacco: How many years used: 70 quit status: not considering quitting Smoking risk assessment performed?: Yes alcohol intake: current alcohol intake frequency: holidays/special occasions only substance use type: does not use Review of Systems Const Denies weight gain and Denies weight loss Card Denies chest pain, Denies irregular heart rhythm and Denies dyspnea on exertion Resp Denies cough and Denies dyspnea on exertion Exam Const General: cooperative, healthy appearing and comfortable Neck Thyroid: abnormal thyroid Carotids: no bruits Lymphatic: lymphadenopathy noted Chest Chest: normal inspection of the chest Resp Auscultation: clear to auscultation bilaterally, no rales, no rhonchi and no wheezes Cardio Rhythm: regular rhythm Heart Sounds: S1 normal, S2 normal, no gallops, no murmurs and no rubs Extrem Gener al: normal to inspection and no edema Assessment Plan Assessment Plan (1) Localized superficial swelling, mass, or lump: Code(s): R22.9 - Localized swelling, mass and lump, unspecified Plan: Cyst is gone. Observe. Medications: Discontinued amoxicillin-pot clavulanate 875-125 mg (Augmentin) Discontinued Reason: MD Order 1 tab PO BID 20 tabs 0RF Coding Level of Care Code 49676 Est Pt Limited Comp Diagnoses Localized superficial swelling, mass, or lump R22.9 Additional Codes Intake - Is patient in pain?: No (1126F) <Electronically signed by Braden Moore DO> 01/21/21 1208 Name Value Range Interpretation Code Description Data Charlee rce(s) Supporting Document(s) ID Date Data Source [id number] 01/11/2021 02:32:00 PM EDT [facility] [address] [place] [address] [phone] NAME SEX PT STATUS ACCOUNT NUMBER FELIX QUIROZ REG REF [id number] ORDERING PHYSICIAN LOCATION MEDICAL RECORD NO. Braden Moore DO CT [id number] ATTENDING PHYSICIAN DATE OF DATE OF EXAM/TIME Braden Moore DO 1935 01/11/21 / 3 TYPE / EXAM CT Soft tissue neck w/o cont REASON FOR EXAM superficial cyst neck; r/o pathology CLINICAL HISTORY: 85-year-old female with superficial cyst neck; r/o pathology PMH years of tobacco ongoing COMPARISON: CT chest 06/23/2020 TECHNIQUE: Axial CT images of the neck were obtained without contrast. Sagittal and coronal reconstructed images were generated. This CT scan was performed with one or more of the following doseoptimization techniques: iterative reconstruction, automatic exposure control, and/or manual adjustment of mAs and kVp according to the patient's size. FINDINGS: CT NECK: The nasopharynx, oropharynx, hypopharynx and larynx are normal in configuration. No significant asymmetry or evident mass. Subcentimeter size lymph nodes are scattered throughout the neck. No lymphadenopathy. The submandibular glands and parotid glands are symmetric and normal. The thyroid gland demonstrates right lobe enlargement measuring 2.3 cm (AP) by 2.2 cm (TV) by 2.9 cm (SI), similar to prior study and favored to be thyroid goiter. Multiple dense nodules are noted elsewhere in the thyroid gland. No abnormality within the true and false vocal cords. Vasculature of the neck is normal in caliber, but the right internal carotid artery takes a retropharyngeal course. Airway is widely patent. No evidence of retained radiopaque foreign body. Visible paranasal sinuses and mastoid air cells are well pneumatized. 7 cervical vertebrae are in alignment with no acute fracture or subluxation. The C2 and C3 vertebral bodies are fused. Disc space narrowing throughout the remainder of the cervical spine is demonstrated, most severe at C4-5 but also present at C5-6 and C6-7. Posterior disc osteophyte complexes at these 3 levels protrude into the spinal canal and neural foramina, contributing to stenosis.There is marked straightening of the cervical lordosis. Atlantodental interval and a tlantooccipital joints are congruent. Prevertebral soft tissues are normal with no evidence of hematoma. Visible lung apices are free of pneumothorax and infiltrate. The patient is edentulous. IMPRESSION: 1. Within the limitations of a noncontrast study there is no visible acute abnormality and no lymphadenopathy to indicate malignancy or infection within the soft tissues of the neck. Consider CT neck with contrast for follow-up, if clinically indicated. 2. Thyroid lobe nodules, similar to prior study. Recommend correlation with thyroid ultrasound for further clarification. 3. Degenerative changes of the spine as detailed above. 4. Other incidental and/or chronic findings as above. END IMPRESSION Reported By Emmie Orozco DO on 01/11/21 1432 Signed By Emmie Orozco DO on 01/11/21 1445 Date Time CC: Emmie Orozco DO; Braden Moore DO Techn: MORSA Trans Dt/Tm: Trans by: DT Prt Dt/Tm: : Total DLP = 213.00 mGy-cm : Total Radiation Dose = 0.6603 mSv Lifetime Dose: 4.5703 mSv Name Value Range Interpretation Code Description Data Charlee rce(s) Supporting Document(s) ID Date Data Source [id number] 01/11/2021 11:25:00 AM EDT [facility] Patient Name: FELIX QUIROZ : 1935 Sex: F Pt Unit #: [id number] Location:[facility] Provider: Visit Date/Time: 01/11/21 Primary Insurance: MEDICARE [employer] Secondary Insurance: AARP Intake Vital Signs 01/11/21 11:31 Current Height 5 ft 4 in Current Weight 108 lb Weight Measurement Method Standing Scale BMI 18.5 BP 108/62 Blood Pressure Location Lt brachial Position Sitting Respiration 18 Pulse 60 Pulse Source Pulse Oximeter Temp 96.4 F L Pulse Oximetry (%) 98 Oxygen Delivery Method room air Intake Visit Reasons: Lump/mass Nurse Note: Lump on neck Patient states she just notice this am and it itches Balance Sheet Analyst Required: No Accompanied by: Daughter Is patient in pain?: No Allergies No Known Drug Allergies Allergy (Verified 10/27/15 21:39) No Known Food Allergies Allergy (Unverified 01/11/21 11:26) HIV Testing Offer - ages 13-64 Requirement for HIV testing offer been met?: Not in age range Do you need a note to return Do you need a note to return to daycare/school/sports/work: No Coronavirus Screening Screening Are you currently positive or on isolation for COVID ?: No Do you have any NEW signs of one or more of the following?: no symptoms Do you have NEW signs of at least two of the following?: no symptoms HPI Additional HPI HPI Details: 85 YO female with lump in neck that itches. [facility] Medical History (Updated 01/11/21 @ 11:55 by Braden Moore DO) Cardiac Disorder Chronic constipation Chronic kidney disease, stage III (moderate) Claudication Cyst Cyst of neck Essential (primary) hypertension Fatigue Fatigue Hearing deficit Hypercalcemia Hypertension Hyperthyroidism Microcytic anemia Osteoporosis past history AAA repair and angioplasty L leg Peripheral arterial disease Peripheral vascular disease Prediabetes Primary osteoarthritis of left hip Pure hypercholesterolemia Repeated falls S/P AAA repair Tobacco dependence Weight loss Surgical History (Updated 12/24/18 @ 07:59 by Izzy Birmingham) Appendectomy Carotid endarterectomy Cataract extraction and insertion of intraocular lens History of - surgery History of - surgery History of hysterectomy Status post tonsillectomy Family History Mother Diabetes Father No problems noted. Sister No problems noted. Sister No problems noted. Sister Abdominal aortic aneurysm Stroke Brother No problems noted. Social History (Updated 01/11/21 @ 11:27 by Izzy Birmingham) Does the Patient have a Healthcare Proxy: Yes Does Patient have a DNR?: No Does Patient have a Living Will?: No Hx Recent Travel (where): No Smoking Status: Current every day smoker tobacco type: cigarettes Tobacco: How many years used: 70 quit status: not considering quitting Smoking risk assessment performed?: Yes alcohol intake: current alcohol intake frequency: holidays/special occasions only substance use type: does not use Review of Systems Const Denies weight gain and Denies weight loss Card Denies chest pain, Denies irregular heart rhythm and Denies dyspnea on exertion Resp Denies cough and Denies dyspnea on exertion Exam Const General: cooperative, healthy appearing, comfortable and no acute distress Neck Thyroid: abnormal thyroid Carotids: no bruits Lymphatic: lymphadenopathy noted Other: superficial movable cyst with central roger no other lymphadenopathy Chest Chest: normal inspection of the chest Resp Auscultation: clear to auscultation bilaterally, diminished lung sounds, no rales, no rhonchi and nowheezes Cardio Rhythm: regular rhythm Heart Sounds: S1 normal, S2 normal, no gallops, no murmurs and no rubs Extrem General: normal to inspection and no edema Assessment Plan Assessment Plan (1) Localized superficial swelling, mass, or lump: Code(s): R22.9 - Localized swelling, mass and lump, unspecified Plan: Cyst of neck with years of tobacco. CT soft tissues neck. Augmentin 875/125 BID x 10 days. Cetirizine 10mg daily prn itch. F/u 10 days. I'll call daughter Chayo back at [phone]. Orders: Orders CT Soft tissue neck w/o cont Today R22.1 - Localized swelling, mass and lump, neck Medications: New amoxicillin-pot clavulanate 875-125 mg (Augmentin) 1 tab PO BID 20 tabs 0RF cetirizine 10 mg PO QDAY PRN 30 tabs 0RF itching Discontinued prednisone 2 tabs daily x 4 days then 1 tab daily x 4 days then stop Discontinued Reason: MD Order 20 mg PO DIRECTED 12 tabs 0RF Coding Level of Care Code 11532 Est Pt Intermediate Comp Diagnoses Localized superficial swelling, mass, or lump R22.9 <Electronically signed by Braden Moore DO> 01/11/21 1158 Name Value Range Interpretation Code Description Data Charlee rce(s) Supporting Document(s) ID Date Data Source [id number] 08/19/2020 10:33:00 AM EDT [facility] Patient Name: FELIX QUIROZ : 1935 Sex: F Pt Unit #: [id number] Location:[facility] Provider: Visit Date/Time: 08/19/20 Primary Insurance: MEDICARE [employer] Secondary Insurance: AARP Intake Vital Signs 08/19/20 10:35 Current Height 4 ft 11 in Current Weight 114 lb Weight Measurement Method Standing Scale BMI 23.0 BP 118/62 Blood Pressure Location Lt brachial Position Sitting Respiration 18 Pulse 65 Pulse Source Pulse Oximeter Pulse Oximetry (%) 95 Oxygen Delivery Method room air Intake Visit Reasons: COPD follow-up Nurse Note: 84 year old female in for COPD follow up, states that she is doing much better and has more ambition. Balance Sheet Analyst Required: No Accompanied by: Daughter Is patient in pain?: No Allergies No Known Drug Allergies Allergy (Verified 10/27/15 21:39) Medications - Last Reconciled 08/19/20 by Brdaen Moore DO ascorbate calcium (vitamin C) 500 mg PO QDAY aspirin 81 mg PO DAILY atenolol TAKE 1 TABLET BY MOUTH EVERY DAY clopidogrel 75 mg PO QDAY ferrous sulfate 325 mg PO QDAY ipratropium-albuterol 0.5 mg-3 mg(2.5 mg base)/3 mL 3 mL inhalation Q6H losartan 50 mg PO DAILY prednisone 20 mg PO DIRECTED HIV Testing Offer - ages 13-64 Requirement for HIV testing offer been met?: Not in age range Coronavirus Screening Screening Are you currently positive or on isolation for COVID ?: No Do you have any NEW signs of one or more of the following?: no symptoms Do you have NEW signs of at least two of the following?: no symptoms HPI Additional HPI HPI Details: 84 YO female with PMH listed is here for f/u. Last seen 08/06/20 and placed on Duoneb QID and was given Prednisone 40mg daily x 4 days. She desired no work up for anemia. She states she feels better. She has more ambition and goes for a walk. No SOB walking througth the store. Her legs hurt if she walks. COPD Follow-Up Pulmonary Results: 2 No Data to Display PFSH Medical History (Updated 06/08/20 @ 11:51 by Braden Moore DO) Cardiac Disorder Chronic constipation Chronic kidney disease, stage III (moderate) Claudication Essential (primary) hypertension Fatigue Fatigue Hearing deficit Hypercalcemia Hypertension Hyperthyroidism Microcytic anemia Osteoporosis past history AAA repair and angioplasty L leg Peripheral arterial disease Peripheral vascular disease Prediabetes Primary osteoarthritis of left hip Pure hypercholesterolemia Repeated falls S/P AAA repair Tobacco dependence Weight loss Surgical History (Updated 12/24/18 @ 07:59 by Izzy Birmingham) Appendectomy Carotid endarterectomy Cataract extraction and insertion of intraocular lens History of - surgery History of - surgery History of hysterectomy Status post tonsillectomy Family History Mother Diabetes Father No problems noted. Sister No problems noted. Sister No problems noted. Sister Abdominal aortic aneurysm Stroke Brother No problems noted. Social History (Updated 06/08/20 @ 10:13 by Zaria Red) Does the Patient have a Healthcare Proxy: Yes Does Patient have a DNR?: No Does Patient have a Living Will?: No Hx Recent Travel (where): No Smoking Status: Current every day smoker tobacco type: cigarettes Tobacco: How many years used: 70 quit status: not considering quitting Smoking risk assessment performed?: Yes alcohol intake: current alcohol intake frequency: holidays/special occasions only substance use type: does not use Exam Const General: cooperative, comfortable and no acute distress Neck Carotids: no bruits Resp Auscultation: clear to auscultation bilaterally, no rales, no rhonchi and no wheezes Cardio Rate: regular rate Rhythm: regular rhythm Heart Sounds: S1 normal, no gallops, no murmurs and no rubs Extrem General: no edema Assessment Plan Assessment Plan (1) COPD (chronic obstructive pulmonary disease): Status: Chronic Code(s): J44.9 - Chronic obstructive pulmonary disease, unspecified SNOMED Code(s): 01102756 Category: Medical Plan - Braden Moore, DO: COPD much improved. Symptomatically she feels very well. She wants no interv entions like colonoscopy, imaging, specialists, PFT's. F/u 9 months. Let me know if she has more phlegm, difficulty breathing. Coding Level of Care Code 38633 Est Pt Intermediate Comp Exam Detailed Diagnoses COPD (chronic obstructive pulmonary disease) J44.9 <Electronically signed by Braden Moore DO> 08/19/20 1109 Name Value Range Interpretation Code Description Data Charlee rce(s) Supporting Document(s) ID Date Data Source [id number] 08/06/2020 10:18:00 AM EST [facility] Patient Name: FELIX QUIROZ : 1935 Sex: F Pt Unit #: [id number] Location:[facility] Provider: Visit Date/Time: 08/06/20 Primary Insurance: MEDICARE [employer] Secondary Insurance: AARP Intake Vital Signs 08/06/20 10:18 Current Height 4 ft 11 in Current Weight 115 lb Weight Measurement Method Standing Scale BMI 23.2 BP 112/52 Blood Pressure Location Lt brachial Position Sitting Respiration 18 Pulse 57 L Pulse Source Pulse Oximeter Pulse Oximetry (%) 99 Oxygen Delivery Method room air Intake Visit Reasons: Anemia Nurse Note: 84 year old female in for anemia follow up, states that she has been on the iron for about a week and has noticed harder and darker colored stool. States that she has been taking mucinex for a couple days to help clear the phlegm in her chest and is unable to bring any up. Balance Sheet Analyst Required: No Accompanied by: daughter Is patient in pain?: No Allergies No Known Drug Allergies Allergy (Verified 10/27/15 21:39) HIV Testing Offer - ages 13-64 Requirement for HIV testing offer been met?: Not in age range Coronavirus Screening Screening Are you currently positive or on isolation for COVID ?: No Do you have any NEW signs of one or more of the following?: no symptoms Do you have NEW signs of at least two of the following?: no symptoms HPI Additional HPI HPI Details: 84 YO female with PMH listed is here for f/u. Last seen 06/08/20 and progressive anemia. She wanted no work up or procedures even though it may be a cancer. Last labs 06/23/20. last seen 06/08/20 COPD, tobacco dependence, microcytic anemia with loose, watery stools, TSH low and expiratory rales LLL. She just &q uot;wants to be kept comfortable." Last seen she went from 122 to 116lbs and today 115lbs. She is here with other daughter Romelia. She feels tired still. The watery stools disappeared. Sheis having formed dark stools, sometimes non-formed. No blood. She has some black stools. She has a lot of phlegm in her chest that doesn't come up. [facility] Medical History (Updated 06/08/20 @ 11:51 by Braden Moore DO) Cardiac Disorder Chronic constipation Chronic kidney disease, stage III (moderate) Claudication Essential (primary) hypertension Fatigue Fatigue Hearing deficit Hypercalcemia Hypertension Hyperthyroidism Microcytic anemia Osteoporosis past history AAA repair and angioplasty L leg Peripheral arterial disease Peripheral vascular disease Prediabetes Primary osteoarthritis of left hip Pure hypercholesterolemia Repeated falls S/P AAA repair Tobacco dependence Weight loss Surgical History (Updated 12/24/18 @ 07:59 by Izzy Birmingham) Appendectomy Carotid endarterectomy Cataract extraction and insertion of intraocular lens History of - surgery History of - surgery History of hysterectomy Status post tonsillectomy Family History Mother Diabetes Father No problems noted. Sister No problems noted. Sister No problems noted. Sister Abdominal aortic aneurysm Stroke Brother No problems noted. Social History (Updated 06/08/20 @ 10:13 by Zaria Red) Does the Patient have a Healthcare Proxy: Yes Does Patient have a DNR?: No Does Patient have a Living Will?: No Hx Recent Travel (where): No Smoking Status: Current every day smoker tobacco type: cigarettes Tobacco: How many years used: 70 quit status: not considering quitting Smoking risk assessment performed?: Yes alcohol intake: current alcohol intake frequency: holidays/special occasions only substance use type: does not use Exam Const General: cooperative, comfortable and no acute distress Resp Auscultation: clear to auscultation bilaterally, no rales, no rhonchi and no wheezes Cardio Rate: regular rate Rhythm: regular rhythm Heart Sounds: S1 normal, S2 normal, no gallops, no murmurs and no rubs Extrem General: no edema Assessment Plan Assessment Plan (1) Microcytic anemia: Status: Acute Code(s): D50.9 - Iron deficiency anemia, unspecified SNOMED Code(s): 776884890 Category: Medical Plan - Braden Moore, DO: COPD exacerbation with increased phlegm. Duoneb QID and nebulizer. Z- Pack. Prednisone 20mg 2 tabsdaily x 4 days then 1 tab daily. F/u 2 weeks. Anemia. Desires no work up. She is on iron. (2) COPD (chronic obstructive pulmonary disease): Status: Chronic Code(s): J44.9 - Chronic obstructive pulmonary disease, unspecified SNOMED Code(s): 80418138 Category: Medical Orders Other Medications: New: azithromycin 2 tabs by mouth today then 1 tab daily days 2-5 250 mg PO QDAY 5 days 6 tabs 0RF prednisone 2 tabs daily x 4 days then 1 tab daily x 4 days then stop 20 mg PO DIRECTED 12 tabs 0RF Refilled: atenolol TAKE 1 TABLET BY MOUTH EVERY DAY 90 tabs 3RF clopidogrel 75 mg PO QDAY 90 tabs 3RF losartan 50 mg PO DAILY 90 tabs 3RF Coding Level of Care Code 13066 Est Pt Intermediate Comp Exam Expanded Problem Focused Diagnoses Microcytic anemia D50.9 COPD (chronic obstructive pulmonary disease) J44.9 <Electronically signed by Braden Moore DO> 08/06/20 1111 Name Value Range Interpretation Code Description Data Charlee rce(s) Supporting Document(s) ID Date Data Source [id number] 06/23/2020 03:37:00 PM EST [facility] [address] [place] [address] [phone] NAME SEX PT STATUS ACCOUNT NUMBER FELIX QUIROZ REG REF [id number] ORDERING PHYSICIAN LOCATION MEDICAL RECORD NO. Braden Moore DO CT [id number] ATTENDING PHYSICIAN DATE OF DATE OF EXAM/TIME Braden Moore DO 1935 06/23/201446 TYPE / EXAM CT Thorax with contrast REASON FOR EXAM expiratory rub LLL, years of smoking COMPARISON: None TECHNIQUE: Contrast Enhanced Multidetector-Row Chest Computed Tomography images were acquired. FINDINGS: Pulmonary Parenchyma and Airways: No pulmonary parenchymal or airway process is present. Multiple bilateral scattered 3 to 4 mm subpleural nodules are seen not significantly changed Pleural Space: No pleural fluid or thickening is present. Heart and Pericardium: Cardiomegaly is noted.. No pericardial fluid or thickening is present. Mediastinum and Desiree: No mediastinal mass is present. No enlarged lymph nodes are present. Thoracic Vessels: Severe atherosclerotic changes involving the thoracic aorta with mural thrombus and numerous areas of calcification is reidentified somewhat worsened since the prior study. No specific aneurysmal dilatation is seen. Osseous Structures and Chest Wall: No pathologic osseous or soft-tissue process is present. Upper Abdomen: No pathologic process is present in the imaged portion of the upper abdomen. Additional findings: None. IMPRESSION: Atherosclerotic change is severely involving the thoracic aorta especially in its descending portion. No aneurysmal dilatation is seen. There is been no significant change since prior study. Iffurther evaluation is clinically indicated CTA may be helpful.. Fleischner Criteria A. Solid Nodules Nodule Type <6mm 6-8mm >8mm Single Low Risk No routine follow-up CT at 6-[address], [address] at 18-[address] at3 months, PET/CT, or tissue sampling High Risk Optional CT at [address] at 6-12 months, then consider CT at 18-24 months ConsiderCT at 3 months, PET/CT, or tissue sampling Multiple Low Risk No routine follow-up CT at 3-6 months, then [address] CT at 18-[address] at 3-6 months, then consider CT at 18-24 months High Risk Optional CT at [address] at 3-6 months, then consider CT at 18-[address] at 3-[address] months, then [address] CT at 18-24 months B. Subsolid Nodules Single <6mm 6mm or greater Ground Glass No routine follow-up CT at 6-12 months to confirm persistence, then CT every 2 yearsuntil 5 years. Part Solid No routine follow-up CT at 3-6 months to confirm persistence. If unchanged and solid component remains <6mm, annual CT should be performed for [address] at 3-6 months, if stable, consider CT at [address] at 3-6 months. Subsequent management based on the most suspicious nodule(s). Dose reduction was performed utilizing CARE dose with automated adjustment of the kV and MAS according to patient size, iterative reconstruction, automated exposure control, as well as adaptivedose shielding. Reported By Heaven Hatfield MD on 06/23/20 1537 Signed By Heaven Hatfield MD on 06/23/20 1601 Date Time CC: Heaven Hatfield MD; Braden Moore DO Techn: JEROSA Trans Dt/Tm: Trans by: DT Prt Dt/Tm: : Total DLP = 70.00 mGy-cm : Total Radiation Dose = 0.9100 mSv Lifetime Dose: 3.9100 mSv Name Value Range Interpretation Code Description Data Charlee rce(s) Supporting Document(s) ID Date Data Source [id number] 06/23/2020 03:09:00 PM EST [facility] [address] [place] [id number] [phone] NAME SEX PT STATUS ACCOUNT NUMBER FELIX QUIROZ REG REF [id number] ORDERING PHYSICIAN LOCATION MEDICAL RECORD NO. Braden Oscar, CT [id number] ATTENDING PHYSICIAN DATE OF DATE OF EXAM/TIME Braden Moore DO 1935 06/23/20 / 1445 TYPE / EXAM CT Abd/pel w/ contrast REASON FOR EXAM fatigue, progressive microcytic anemia COMPARISON: 09/11/2017 TECHNIQUE: CT images through the abdomen and pelvis obtained with intravenous contrast. FINDINGS: LUNG BASES: Unremarkable LIVER: No focal mass lesions. No intrahepatic biliary ductal dilatation. A small right- sided hepatic cyst is unchanged GALLBLADDER: Cholelithiasis unchanged SPLEEN: Unremarkable. PANCREAS: Normal CT appearance. ADRENALS: No nodules. KIDNEYS: Left renal cysts and a right lower pole nonobstructing calculus are unchanged BOWEL: Nondilated. MESENTERY/PERITONEUM: Unremarkable. NODES: Nondilated. PELVIS: Unremarkable. BONE WINDOWS: No aggressive osseous abnormalities. VASCULATURE: Atherosclerotic changes in the abdominal aorta with areas of severely calcified plaqueare reidentified. The distal abdominal aorta measures approximately 2.17 x 2.0 cm not significantly changed since prior study SOFT TISSUES: Unremarkable. IMPRESSION: No acute changes.. Reported By Heaven Hatfield MD on 06/23/20 1509 Signed By Heaven Hatfield MD on 06/23/20 1536 Date Time CC: Heaven Hatfield MD; Braden Moore DO Techn: MORSA Trans Dt/Tm: Trans by: DT Prt Dt/Tm: : Total DLP = 200.00 mGy-cm : Total Radiation Dose = 3.0000 mSv Lifetime Dose: 3.9100 mSv Name Value Range Interpretation Code Description Data Charlee rce(s) Supporting Document(s) ID Date Data Source [id number] 06/23/2020 12:43:00 PM EST [facility] Name Value Range Interpretation Code Description Data Charlee rce(s) Supporting Document(s) Leukocytes [#/volume] in Blood by Automated count 9.2 10*3/uL 4.45-10 .71 N [facility] Erythrocytes [#/volume] in Blood by Automated count 4.05 10*6/uL 4.20-5.40 Below low normal [facility] Hemoglobin [Moles/volume] in Blood 9.0 g/dL 10.7-15.4 Below low no rmal [facility] Hematocrit [Volume Fraction] of Blood by Automated count 32.0 % 37-47 Below low normal [facility] Erythrocyte mean corpuscular volume [Ent itic volume] in Cord blood by Automated count 79.0 fL 80-[address] [facility] Erythrocyte mean corpuscular hemoglobin [Entitic mass] by Automated count 22.2 pg 27-31 Below low normal [facility] pital Erythrocyte mean corpuscular hemoglobin concentration [Mass/volume] in Cord blood 28.1 g/dL 33-[address] [facility] Erythrocyte distribution width [Entitic volume] by Automated cou nt 17 % 11-15 Above high normal [facility] Platelets [#/volume] in Blood by Automated count 394 10*3/uL 130-472 N [facility] Platelet mean volume [Entitic volume] in Blood 9.0 fL 9.1-13. 1 Below low normal [facility] Neutrophils/100 leukocytes in Blood by Automated count 60.3 % 41- 77 N [facility] Neutrophils [#/volume] in Blood by Automated count 5.6 U 1.7-7.6 N [facility] Lymphocytes/100 leukocytes in Blood by Automated count 25.6 % 14- 46 N [facility] [facility] [#/volume] in Blood by Automated count 2.4 U 0.6-4.6 N [facility] Monocytes/100 leukocytes in Blood by Automated count 12.1 % 4-12 Above high normal [facility] Monocytes [#/volume] in Blood by Automated count 1.1 U 0.2-1.2 N [facility] Eosinophils/100 leukocytes in Blood by Automated count 1.1 % 0-7 N [facility] Eosinophils [#/volume] in Blood by Automated count 0.1 U 0.0-0.5 N [facility] Basophils/100 leukocytes in Blood by Automated count 0.5 % 0.4-1 .3 N [facility] Basophils [#/volume] in Blood by Automated count 0.1 U 0.0-0.2 N [facility] NUCLEATED RED BLOOD CELL 0 % [facility] NUCLEATED RED BLOOD CELL# 0 U [facility] Immature granulocytes [Presence] in Blood by Automated count 0-2 N [facility] Immature granulocytes [#/volume] in Blood by Automated count 0.0 U 0-0.1 N [facility] Manual Differential panel - Blood NO [facility] ID Date Data Source [id number] 06/23/2020 02:05:00 PM EST [facility] Name Value Range Interpretation Code Description Data Charlee rce(s) Supporting Document(s) Urea nitrogen [Mass/volume] in Serum or Plasma 18 mg/dL 9-23 N [facility] Sodium [Moles/volume] in Serum or Plasma 143 mmol/L 132-146 [facility] Potassium [Moles/volume] in Serum or Plasma 4.0 mmol/L 3.5-5.5 [facility] Chloride [Moles/volume] in Serum or Plasma 113 mmol/L 99-109 Above high normal [facility] Carbon dioxide, total [Moles/volume] in Serum or Plasma 24 mmol/L 20 -31 [facility] Anion gap in Serum or Plasma 10 mmol/L 8-16 [facility] Glucose [Mass/volume] in Serum or Plasma 95 mg/dL 74-106 N [facility] Creatinine 1.0 mg/dL 0.5-1.1 [facility] Glomerular filtration rate/1.73 sq M.pre dicted [Volume Rate/Area] in Serum or Plasma 53 ml/min ABOVE 60 [facility] ital Alanine aminotransferase [Enzymatic acti vity/volume] in Serum or Plasma by With P-5'-P 17 U/L 10-49 N [facility] ital Aspartate aminotransferase [Enzymatic ac tivity/volume] in Serum or Plasma by With P-5'-P 8 U/L 0-33 N [facility] Alkaline phosphatase [Enzymatic activity/volume] in Serum or Plasma 144 U/L 45-129 Above high normal [facility] Calcium [Mass/volume] in Serum or Plasma 8.9 mg/dL 8.5-10.1 [facility] Bilirubin.total [Mass/volume] in Serum or Plasma 0.2 mg/dL 0.3-1.2 Below low normal [facility] Albumin [Mass/volume] in Serum or Plasma by Bromocresol purple (BCP) dye binding method 3.6 g/dL 3.2-4.8 [facility] ital Protein [Mass/volume] in Serum or Plasma 7.0 g/dL 5.7-8.2 [facility] ID Date Data Source [id number] 06/24/2020 02:07:00 PM [facility] Value Range Interpretation Code Description Data Charlee rce(s) Supporting Document(s) Thyroid Peroxidase Abs 1 [IU]/mL <9 [facility] THIS TEST WAS PERFORMED AT:[facility] [address] [id number] MERATI,MD ID Date Data Source [id number] 06/23/2020 02:05:00 PM [facility] Value Range Interpretation Code Description Data Charlee rce(s) Supporting Document(s) Iron [Mass/volume] in Serum or Plasma 55 ug/dL 50-170 [facility] Iron values may be falsely elevated in s deb samples frompatients treated with anticoagulants (e.g., hemodialysispatients) ID Date Data Source [id number] 06/23/2020 02:05:00 PM [facility] Value Range Interpretation Code Description Data Hcarlee rce(s) Supporting Document(s) C reactive protein [Mass/volume] in Serum or Plasma 8.4 mg/L 0.0-5.0 Above high normal [facility] ID Date Data Source [id number] 06/23/2020 02:05:00 PM [facility] Value Range Interpretation Code Description Data Charlee rce(s) Supporting Document(s) Thyroxine (T4) free [Mass/volume] in Serum or Plasma 0.78 ng/dL 0.89-1.76 Below low normal [facility] ID Date Data Source [id number] 06/23/2020 02:05:00 PM [facility] Name Value Range Interpretation Code Description Data Charlee rce(s) Supporting Document(s) Thyrotropin [Units/volume] in Serum or Plasma by Detec tion limit <= 0.005 mIU/L 0.24 u[iU]/mL 0.35-5.50 Below low normal [facility] spital ID Date Data Source [id number] 06/08/2020 09:43:00 AM [facility] Patient Name: FELIX QUIROZ : 1935 Sex: F Pt Unit #: [id number] Location:[facility] Provider: Visit Date/Time: 06/08/20 Primary Insurance: MEDICARE [employer] Secondary Insurance: AARP Intake Vital Signs 06/08/20 10:18 Current Height 4 ft 11 in Current Weight 116 lb Weight Measurement Method Standing Scale BMI 23.4 BP 122/62 Blood Pressure Location Lt brachial Position Sitting Respiration 18 Pulse 61 Pulse Source Pulse Oximeter Temp 97.8 F Temp Source Oral Pulse Oximetry (%) 98 Oxygen Delivery Method room air Intake Visit Reasons: Hypertension Nurse Note: 84 year old female in for a hypertension follow up. Pt states that she only is taking the 5 medications Balance Sheet Analyst Required: No Accompanied by: Daughter Is patient in pain?: No Allergies No Known Drug Allergies Allergy (Verified 10/27/15 21:39) Medications - Last Reconciled 06/08/20 by Braden Moore DO alendronate 70 mg PO QWEEK ascorbate calcium (vitamin C) 500 mg PO QDAY aspirin 81 mg PO DAILY atenolol 50 mg PO DAILY atorvastatin 80 mg PO QDAY calcium carbonate-vitamin D3 600 mg(1,500mg) -400 unit 1 ea PO BID cholecalciferol (vitamin D3) 1 cap PO 2XW clopidogrel 75 mg PO QDAY losartan 50 mg PO DAILY umeclidinium 62.5 mcg/actuation (Incruse Ellipta) 1 inh inhalation QDAY Fall Risk History of falls: No Ambulatory Aid:: None Gait/Transferring:: Impaired HIV Testing Offer - ages 13-64 Requirement for HIV testing offer been met?: Not in age range Coronavirus Screening Screening Have you traveled outside of [facility] or [facility] in the last 14 days.: No Has patient experienced coronavirus symptoms: No PFSH Medical History (Updated 06/08/20 @ 11:46 by Braden Moore DO) Cardiac Disorder Chronic constipation Chronic kidney disease, stage III (moderate) Claudication Essential (primary) hypertension Fatigue Fatigue Hearing deficit Hypercalcemia Hypertension Hyperthyroidism Microcytic anemia Osteoporosis past history AAA repair and angioplasty L leg Peripheral arterial disease Peripheral vascular disease Prediabetes Primary osteoarthritis of left hip Pure hypercholesterolemia Repeated falls S/P AAA repair Tobacco dependence Surgical History (Updated 12/24/18 @ 07:59 by Izzy Birmingham) Appendectomy Carotid endarterectomy Cataract extraction and insertion of intraocular lens History of - surgery History of - surgery History of hysterectomy Status post tonsillectomy Family History Mother Diabetes Father No problems noted. Sister No problems noted. Sister No problems noted. Sister Abdominal aortic aneurysm Stroke Brother No problems noted. Social History (Updated 06/08/20 @ 10:13 by Zaria Red) Does the Patient have a Healthcare Proxy: Yes Does Patient have a DNR?: No Does Patient have a Living Will?: No Hx Recent Travel (where): No Smoking Status: Current every day smoker tobacco type: cigarettes Tobacco: How many years used: 70 quit status: not considering quitting Smoking risk assessment performed?: Yes alcohol intake: current alcohol intake frequency: holidays/special occasions only substance use type: does not use HPI Additional HPI HPI Details: 84 YO female with PMH listed is here for f/u. Last seen 09/15/19. Last labs 05/31/20. She had poor balance last appt and declined PT. Lately her bowels have just been coming out and loose. She is having accidents. her daughter Jesi states her SOB is worse. She sleeps a lot. Her best friend two weeks ago. She is eating fine. She coughs a lot. She is not taking her Incruse and found it not to be helpful when she did take it. Hypertension (Cardio) Current neurological symptoms: Denies headache(s) or loss of vision Current cardiovascular symptom: denies dyspnea on exertion or fatigue Current renal disease symptoms: denies fatigue [facility] Cardiac Tests: No Data to Display Review of Systems Const Denies fatigue, Denies fever(s), Denies headache(s) and Denies night sweats Eyes Denies loss of vision ENT Denies headache(s) Card Denies chest pain with activity and Denies dyspnea on exertion Resp Denies cough and Denies dyspnea on exertion GI Denies change in bowel habits Genitourinary: Denies nocturia Musc Reports arthralgias (left knee hurts) Skin/Breast Denies new lesions Neuro Denies headache(s), Denies loss of vision and Denies paresthesias Psych Denies abnormal sleep pattern, Denies an xiety, Denies change in appetite, Denies depression and Denies irritability Endo Denies fatigue Aller/Immun Reports seasonal rhinorrhea Exam Const General: cooperative, healthy appearing, comfortable, no acute distress, well developed, well groomed and not in acute distress HENMT Head: normal to inspection Ears: TM's normal bilaterally Face and sinus: normal facial exam Mouth: oral mucosae normal, oropharynx normal and moist mucous membranes Throat: posterior oropharynx normal Eyes Pupils: PERRL EOM: EOM intact bilaterally Neck Thyroid: thyroid normal and no palpable nodules Carotids: no bruits Lymphatic: no lymphadenopathy noted Chest Chest: normal inspection of the chest Resp Effort Inspection: normal respiratory effort Auscultation: clear to auscultation bilaterally, no rales, no rhonchi, no wheezes and tactile fremitus present (expiratory rub LLL) Cardio Heart Sounds: S1 normal, S2 normal, no gallops, no murmurs and no rubs GI Palpation: soft, hepatosplenomeg parker present, no hernias and nontender Auscultation: normal bowel sounds and no bruits Rectal Exam - Female: Yes deferred General: deferred [facility] Cervical Spine: normal cervical lordosis Thoracic/Lumbar Spine: thoracic and lumbar spine normal to inspection Skin Lesions: no lesions Rashes: no rashes Hair: normal Nails: normal Neuro General: patient alert, patient awake and patient oriented x3 Cranial Nerves: PERRL and EOM intact bilaterally Cognition: normal cognition Speech: speech normal Gait: normal gait Motor: muscle tone normal throughout and strength 5/5 throughout Extrem General: normal to inspection, no clubbing, no cyanosis, no edema and no pedal edema Psych Appearance: grossly normal and well kempt Mental Status: mental status grossly normal Speech and Movement: speech and movement normal Mood: congruent mood Affect: normal affect Attitude: cooperative Thought Process: normal Thought Content: normal Assessment Plan Assessment Plan (1) Hypert ension: SNOMED Code(s): 71334092 Category: Medical Plan - Braden Moore, DO: COPD, tobacco dependence, weight loss, fatigue, microcytic anemia with loose, water stools and accidents. TSH is low and expiratory rub LLL. She ultimately does not want any big interventions. When colonoscopy came up she stated "NO!" CT abd/pelvis and chest with IV contrast to identify any pa thology for future reasons to keep her comfortable. TSH, free T4 and also thyroid Ab in first week of Feb and then f/u after that. (2) Microcytic anemia: Status: Acute Code(s): D50.9 - Iron deficiency anemia, unspecified SNOMED Code(s): 485012222 Category: Medical (3) Fatigue: Status: Acute Code(s): R53.83 - Other fatigue SNOMED Code(s): 16679943 Category: Medical (4) Tobacco dependence: Status: Chronic Code(s): F17.200 - Nicotine dependence, unspecified, uncomplicated SNOMED Code(s): 55136674 Category: Medical (5) COPD (chronic obstructive pulmonary disease): Status: Chronic Code(s): J44.9 - Chronic obstructive pulmonary disease, unspecified SNOMED Code(s): 73406602 Category: Medical (6) Hyperthyroidism: Status: Acute Code(s): E05.90 - Thyrotoxicosis, unspecified without thyrotoxic crisis or storm SNOMED Code(s): 04103633 Category: Medical Orders Other Medications: Discontinued: atorvastatin Discontinued Reason: MD Order 80 mg PO QDAY 90 tabs 3RF E78.00 umeclidinium 62.5 mcg/actuation (Incruse Ellipta) Discontinued Reason: MD Order 1 inh inhalation QDAY 30 ea 5RF alendronate Discontinued Reason: MD Order 70 mg PO QWEEK 13 tabs 3RF calcium carbonate-vitamin D3 600 mg(1,500mg) -400 unit Discontinued Reason: MD Order 1 ea PO BID 120 caps 3RF Z13.820 cholecalciferol (vitamin D3) Discontinued Reason: MD Order 1 cap PO 2XW 8 caps 3RF M81.0 Instructions: DASH Eating Plan (GEN) Hypertension (GEN) Coding Level of Care Code 42551 Est Pt Extended Comp Exam Comprehensive Diagnoses Hypertension I10 Microcytic anemia D50.9 Fatigue R53.83 Tobacco dependence F17.200 COPD (chronic obstructive pulmonary disease) J44.9 Hyperthyroidism E05.90 <Electronically signed by Braden Moore DO> 06/08/20 1149 Name Value Range Interpretation Code Description Data Charlee rce(s) Supporting Document(s) ID Date Data Source [id number] 05/31/2020 01:50:00 PM [facility] Name Value Range Interpretation Code Description Data Charlee rce(s) Supporting Document(s) Hemoglobin A1c [Mass/volume] in Blood 5.6 % 3.8-5.6 N [facility] The following ranges may be u sed for interpretation of results: HGBA1C degree of glucose control: Greater than 8%: Action Suggested * Less than 7%: Goal of Diabetic Therapy Less than 5.6%: NormalFactors such as duration of diabetes, adherence to therapyand the age of the patient should also be considered inassessing the degree of blood glucose control.* High risk of developing intermediate frame tender complications such asretinopathy, nephropathy, neuropathy, cardiopathy, etc. Some danger of hypoglycemic reaction in Type I diabetics.Some glucose intolerant individuals and "Sub Clinical"diabetics may demonstrate HGBA1C levels in this area. Glucose mean value [Moles/volume] in Blood Estimated f rom glycated hemoglobin 114 mg/dL [facility] l An A1C of 7% - the goal of diabetic ther apy - is equivalentto an EAG of 154 mg/dl. ID Date Data Source [id number] 05/31/2020 01:57:00 PM [facility] Name Value Range Interpretation Code Description Data Charlee rce(s) Supporting Document(s) Leukocytes [#/volume] in Blood by Automated count 9.5 10*3/uL 4.45-10 .71 N [facility] Erythrocytes [#/volume] in Blood by Automated count 3.66 10*6/uL 4.20-5.40 Below low normal [facility] Hemoglobin [Moles/volume] in Blood 8.4 g/dL 10.7-15.4 Below low no rmal [facility] Hematocrit [Volume Fraction] of Blood by Automated count 29.6 % 37-47 Below low normal [facility] Erythrocyte mean corpuscular volume [Ent itic volume] in Cord blood by Automated count 80.9 fL 80-96 N [facility] Erythrocyte mean corpuscular hemoglobin [Entitic mass] by Automated count 23.0 pg 27-31 Below low normal [facility] pital Erythrocyte mean corpuscular hemoglobin concentration [Mass/volume] in Cord blood 28.4 g/dL 33-[address] [facility] Erythrocyte distribution width [Entitic volume] by Automated cou nt 17 % 11-15 Above high normal [facility] Platelets [#/volume] in Blood by Automated count 386 10*3/uL 130-472 N [facility] Platelet mean volume [Entitic volume] in Blood 9.5 fL 9.1-13.1 N [facility] Neutrophils/100 leukocytes in Blood by Automated count 54.9 % 41- 77 N [facility] Neutrophils [#/volume] in Blood by Automated count 5.2 U 1.7-7.6 N [facility] Lymphocytes/100 leukocytes in Blood by Automated count 30.5 % 14- 46 N [facility] Lymphocytes [#/volume] in Blood by Automated count 2.9 U 0.6-4.6 N [facility] Monocytes/100 leukocytes in Blood by Automated count 12.1 % 4-12 Above high normal [facility] Monocytes [#/volume] in Blood by Automated count 1.1 U 0.2-1.2 N [facility] Eosinophils/100 leukocytes in Blood by Automated count 1.6 % 0-7 N [facility] Eosinophils [#/volume] in Blood by Automated count 0.2 U 0.0-0.5 N [facility] Basophils/100 leukocytes in Blood by Automated count 0.5 % 0.4-1 .3 N [facility] Basophils [#/volume] in Blood by Automated count 0.1 U 0.0-0.2 N [facility] NUCLEATED RED BLOOD CELL 0 % [facility] NUCLEATED RED BLOOD CELL# 0 U [facility] Immature granulocytes [Presence] in Blood by Automated count 0-2 N [facility] Immature granulocytes [#/volume] in Blood by Automated count 0.0 U 0-0.1 N [facility] Manual Differential panel - Blood NO [facility] ID Date Data Source [id number] 05/31/2020 02:01:00 PM EST [facility] Name Value Range Interpretation Code Description Data Charlee rce(s) Supporting Document(s) Urea nitrogen [Mass/volume] in Serum or Plasma 18 mg/dL 9-23 N [facility] Sodium [Moles/volume] in Serum or Plasma 147 mmol/L 132-146 Above high normal [facility] Potassium [Moles/volume] in Serum or Plasma 3.7 mmol/L 3.5-5.5 N [facility] Chloride [Moles/volume] in Serum or Plasma 114 mmol/L 99-109 Above high normal [facility] Carbon dioxide, total [Moles/volume] in Serum or Plasma 25 mmol/L 20 -31 N [facility] Anion gap in Serum or Plasma 12 mmol/L 8-16 N [facility] Glucose [Mass/volume] in Serum or Plasma 115 mg/dL 74-106 Above high normal [facility] Creatinine 1.0 mg/dL 0.5-1.[address] [facility] Glomerular filtration rate/1.73 sq M.pre dicted [Volume Rate/Area] in Serum or Plasma 53 ml/min ABOVE 60 [facility] ital Alanine aminotransferase [Enzymatic acti vity/volume] in Serum or Plasma by With P-5'-P 19 U/L 10-49 [facility] ital Aspartate aminotransferase [Enzymatic ac tivity/volume] in Serum or Plasma by With P-5'-P 13 U/L 0-33 [facility] pital Alkaline phosphatase [Enzymatic activity/volume] in Serum or Plasma 127 U/L 45-129 [facility] Calcium [Mass/volume] in Serum or Plasma 8.9 mg/dL 8.5-10.1 [facility] Bilirubin.total [Mass/volume] in Serum or Plasma 0.2 mg/dL 0.3-1.2 Below low normal [facility] Albumin [Mass/volume] in Serum or Plasma by Bromocresol purple (BCP) dye binding method 3.4 g/dL 3.2-4.8 [facility] ital Protein [Mass/volume] in Serum or Plasma 7.0 g/dL 5.7-8.2 [facility] ID Date Data Source [id number] 05/31/2020 02:01:00 PM EST [facility] Name Value Range Interpretation Code Description Data Charlee rce(s) Supporting Document(s) Triglycerides 313 mg/dL 0-150 Above high normal [facility] Cholesterol 160 mg/dL 120-200 N [facility] HDL Cholesterol 27 mg/dL [facility] HDL Less than 40 mg/dL: Major risk for CHDHDL Greater than 59 mg/dL: Low risk for CHD LDL Cholesterol, Calc 71 mg/dL 0-100 N [facility] ID Date Data Source [id number] 05/31/2020 02:01:00 PM EST [facility] Name Value Range Interpretation Code Description Data Charlee rce(s) Supporting Document(s) Thyrotropin [Units/volume] in Serum or Plasma by Detec tion limit <= 0.005 mIU/L 0.33 u[iU]/mL 0.35-5.50 Below low normal [facility] spital Procedure Social History Code Duration Value Status Description Data Source(s ) 01/11/2021 11:27:53 AM EDT Current every day smoker co mpleted Current every day smoker [facility] Smoking 01/11/2021 11:27:00 AM EDT Current every day smoker co mpleted Current every day smoker [facility] 06/08/2020 10:13:36 AM EST Current every day smoker co mpleted Current every day smoker [facility] 06/08/2020 10:13:36 AM EST Current every day smoker co mpleted Current every day smoker [facility] 06/08/2020 10:13:36 AM EST Current every day smoker co mpleted Current every day smoker [facility] Smoking 06/08/2020 10:13:00 AM EST Current every day smoker co mpleted Current every day smoker [facility] Smoking 06/08/2020 10:13:00 AM EST Current every day smoker co mpleted Current every day smoker [facility] Smoking 06/08/2020 09:13:00 AM EST Current every day smoker co mpleted Current every day smoker [facility]
--- NOTE | 2021-04-05 12:12 | REP ---
INDICATION: b/l hip pain L>R. COMPARISON: CT abdomen pelvis 07/30/2019. TECHNIQUE: AP pelvis with two views bilateral hips. FINDINGS: AP pelvis: Pelvic ring is intact SI joints symmetric iliac wings unremarkable there is very heavy atherosclerotic calcification of iliac arteries bilaterally sacral ala and foramina symmetric hip joint space is symmetric without narrowing there are surgical clips about the right groin related to known previous the left iliac 2 right femoral graft. Pubic rami symphysis pubis acetabulae and hips grossly intact. Left hip: No hip joint space narrowing. There is no evidence of AVN or fracture. Intertrochanteric and subtrochanteric femur intact. Heavy vascular calcifications in the iliac and mid thigh femoral artery. Right hip: Vascular calcifications in the groin and heavy vascular calcifications in the proximal to mid femoral artery as well as in the iliac artery in the pelvis pelvic phleboliths noted. Some degenerative changes at the acetabular roof and femoral head is a tiny rim osteophyte no AVN or fracture. Intertrochanteric and subtrochanteric proximal femur unremarkable. Some minor sclerosis along the SI joint. Sacrum intact IMPRESSION: 1. AP pelvis and hips show some minor degenerative change but no visible fracture, destructive lesion, AVN or other acute bony finding. 2. Heavy vascular calcifications iliac and femoral arteries and surgical clips in the right groin from known prior vascular surgery. 3. No significant or acute finding of the hips. <Electronically signed by Ozzie Narayanan > 04/05/21 [id number]
[2021-04-05] MEDS ORDERED: ACETAMINOPHEN 500 MG TAB PO ONE (12:30)
[2021-04-05 13:06] LABS: BASO % 0.4 % (0.0-1.0); EOS % 0.6 % (0.0-3.0); HEMATOCRIT 26.6 % (36.0-47.0); HEMOGLOBIN 7.7 g/dl (12.0-15.5); LYMPH # 1.6 10^3/uL (1.5-5.0); LYMPH % 30.9 % (24.0-44.0); MEAN CORPUSCULAR HEMOGLOBIN 22.6 pg (27.0-33.0); MEAN CORPUSCULAR HGB CONC 28.9 g/dl (32.0-36.5); MEAN CORPUSCULAR VOLUME 78.2 fl (80.0-96.0); MONO # 0.9 10^3/uL (0.0-0.8); MONO % 17.2 % (2.0-8.0); NEUTROPHILS # 2.6 10^3/uL (1.5-8.5); NEUTROPHILS % 50.7 % (36.0-66.0); PLATELET COUNT, AUTOMATED 323 10^3/uL (150-450); WHITE BLOOD COUNT 5.1 10^3/uL (4.0-10.0)
[2021-04-05 13:25] LABS: PROTHROMBIN TIME 13.6 SECONDS (12.7-14.5)
[2021-04-05] MEDS ORDERED: ISOVUE-370 76% 100ML VIAL As Ordered ONE (13:30)
[2021-04-05 14:49] LABS: FOLATE 16.9 NG/ML (>5.4); PERCENT SATURATION 3.2 % (13.2-45.0)
--- NOTE | 2021-04-05 14:49 | REP ---
INDICATION: b/l hip pain, h/o AAA repair. COMPARISON: CT abdomen pelvis with IV 07/30/2019 TECHNIQUE: Bolus 100 mL Isovue 370 scanning through the abdomen pelvis and lower extremities. Coronal and sagittal reconstructions with coronal MIP reformats and 3D surface rendering rotated about the longitudinal axis of the body. FINDINGS: NONVASCULAR: CT abdomen/pelvis: Lung bases show some peripheral fibrotic changes and dependent atelectasis without effusion or acute infiltrate. 7 mm nodular density laterally in the right lower lobe the subpleural region on image 6. Heart is mildly enlarged with left atrial and ventricular enlargement. Suspect some right heart enlargement as well. There is no pericardial thickening or effusion. Sub cm cyst in the right hepatic lobe with the liver otherwise normal. Gallbladder shows densely calcified gallstones (2) with no mass, pericholecystic edema or wall thickening. Pancreas unremarkable. Adrenal glands normal. Spleen is unremarkable stool and gas seen throughout the colon with some diverticulosis of the left colon and sigmoid without acute inflammatory change. Small bowel loops are unremarkable. Appendix is seen and normal. There is no ascites. There is no hiatal hernia. Lung window review of all CT slices in the abdomen and pelvis show no perforation or free air. There is no pelvic mass or pelvic ascites. Diverticulosis without diverticulitis. The small bowel loops unremarkable. No pelvic ascites. Bone windows show no compression deformity in the lumbar spine or lower thoracic region. Posterior elements intact visualized ribs intact. Lower extremity CT: Anterior and posterior compartment musculature symmetric bilaterally. Pelvis, bilateral hips, knees, lower legs and feet show no acute bony abnormality. Anterior and posterior compartment muscles of the calves are normal as well I do not see any subcutaneous edema or fluid collections in the lower extremities. VASCULAR: Aorta/iliacs: Diffuse atherosclerotic calcifications and some tortuosity of the aorta. Atherosclerotic plaques near takeoffs of SMA, celiac axis and both renal arteries. There is near occlusion of the right common iliac artery there is a left common iliac to right femoral graft evident with patency. Common femorals: Right common femoral is reconstituted from left iliac to femoral graft. None there there is retrograde flow into the external iliac in than up through that into internal iliac branches on the right side. Left common iliac and femoral arteries are patent. There is atherosclerotic plaque in the common and profundus femoris on both sides. Superficial femorals: Atherosclerotic plaque seen on the right with patency of the right superficial femoral but fairly extensive plaque in the mid and lower thigh. The left superficial femoral also shows patency proximally with significant mid to distal calcific plaque without occlusion. Popliteal arteries: Atherosclerotic plaque scattered throughout the popliteal arteries without tight stenoses. Tibial and peroneal arteries: Runoff to the right ankle via the peroneal artery with the tibials showing less flow and not reaching the ankle. Runoff to the left ankle also via the peroneal artery with the tibial arteries showing less flow and not reaching the ankle. IMPRESSION: 1. Diffuse atherosclerotic disease from abdominal aorta to the runoff vessels in the calf. Significant stenosis of the right common iliac and external iliac vessels with a patent common iliac to right femoral graft. 2. Extensive the scattered calcific plaque in the mid to distal superficial femoral arteries and scattered in both popliteal arteries without tight stenosis. 3. Only peroneal arteries appear to reach the ankle on each side. The tibial arteries do not. 4. Other findings as detailed above. <Electronically signed by Ozzie Narayanan > 04/05/21 [id number]
[2021-04-05 15:30] LABS: RSV AMPLIFICATION NEGATIVE (NEGATIVE)
[2021-04-05] MEDS ORDERED: ACETAMINOPHEN TAB 650MG DOSE (2X325MG) PO PRN (16:00)
--- NOTE | 2021-04-05 16:33 | HPEPDOC ---
General Date of Admission Apr 05, 2021 at 15:56 Date of Service: Apr 05, 2021 Chief Complaint The patient is a 85-year-old female admitted with a reason for visit of Covid- 19. Source: Patient Exam Limitations: No limitations History of Present Illness Patient is 85 years old female with past medical history of hypertension, COPD not on the oxygen, who is active smoker, hyperlipidemia, arthritis, AAA repair, coronary artery disease, osteoporosis presented to hospital with generalized weakness. Patient stated that for past 3 to 4 days she she has been having generalized weakness associated with shortness of breath on exertion. Also she stated that she had bilateral hip pain, which is chronic. Also patient reported that she has been having black stool for past 2 to 3 weeks. In ER patient was found to have Covid positive test, no leukocytosis, hemoglobin 7.7, MCV 78, iron 12, total iron-binding capacity 371. CT abdomen/pelvis showed Diffuse atherosclerotic disease from abdominal aorta to the runoff vessels in the calf. Significant stenosis of the right common iliac and external iliac vessels with a patent common iliac to right femoral graft. Hip x-ray negative for fracture or dislocation. Stool for occult blood was positive Patient denies fever, chills. She denies diarrhea or dysuria Home Medications Scheduled Aspirin (Aspir 81) 81 Mg Tab, 81 MG PO DAILY, (Reported) Atenolol (Atenolol) 50 Mg Tab, 50 MG PO DAILY, (Reported) Clopidogrel Bisulfate (Clopidogrel) 75 Mg Tab, 75 MG PO DAILY, (Reported) Losartan Potassium (Losartan Potassium) 50 Mg Tab, 50 MG PO DAILY, (Reported) Miscellaneous Medications Alendronate Sodium (Alendronate Sodium) 70 Mg Tablet, (Reported) Ipratropium/Albuterol Sulfate (Iprat-Albut 0.5-3(2.5) mg/3 ml) 3 Ml Ampul.neb, (Reported) Umeclidinium [place] (Incruse Ellipta) 62.5 Mcg Blst.w.dev, (Reported) Allergies Coded Allergies: No Known Allergies (Unverified , 08/14/16) Past Medical History Medical History hypertension, COPD not on the oxygen, who is active smoker, hyperlipidemia, arthritis, AAA repair, coronary artery disease, osteoporosis Surgical History Significant for abdominal aortic aneurysm repair, angioplasty and hysterectomy. Family History I personally reviewed family history and found not pertinent Social History * Smoker: current smoker Alcohol: Denies Drugs: denies A-FIB/CHADSVASC A-FIB History Current/History of A-Fib/PAF?: No Current PO Anticoag Therapy: No Review of Systems Constitutional: Reports: Malaise, Weakness, Fatigue; Denies: Chills Eyes: Denies: Pain ENT: Denies: Head Aches Skin: Denies: Rash, Lesions Pulmonary: Denies: Dyspnea Cardiovascular: Denies: Chest Pain Gastrointestinal: Denies: Nausea Genitourinary: Denies: Dysuria Hematologic: Denies: Bruising Endocrine: Denies: Polydipsia Musculoskeletal: Reports: Leg Pain; Denies: Neck Pain Neurological: Denies: Weakness Psych: Reports: Mood Normal Physical Examination General Exam: Positive: Alert, Cooperative Eye Exam: Positive: PERRLA ENT Exam: Positive: Atraumatic Neck Exam: Positive: Supple; Negative: JVD Chest Exam: Positive: Clear to auscultation Heart Exam: Positive: Rate Normal Telemetry: Positive: No significant arrhythmia Abdomen Exam: Positive: Normal bowel sounds Extremity Exam: Positive: Tenderness (Over hip area bilaterally); Negative: Clubbing Skin Exam: Positive: Nl turgor and temperature Neuro Exam: Positive: Cranial Nerves 3-12 NL Psych Exam: Positive: Oriented x 3 Vital Signs Vital Signs Date Time Temp Pulse Resp B/P (MAP) Pulse Ox O2 Delivery O2 Flow Rate FiO2 04/05/21 07:48 96.6 72 18 123/54 (77) 99 Room Air Laboratory Data Labs 24H Laboratory Tests 2 04/05/21 12:58: Immature Granulocyte % (Auto) 0.2, Neutrophils (%) (Auto) 50.7, Lymphocytes (%) (Auto) 30.9, Monocytes (%) (Auto) 17.2H, Eosinophils (%) (Auto) 0.6, Basophils (%) (Auto) 0.4, Neutrophils # (Auto) 2.6, Lymphocytes # (Auto) 1.6, Monocytes # (Auto) 0.9H, Eosinophils # (Auto) 0.0, Basophils # (Auto) 0.0, Nucleated Red Blood Cells % (auto) 0.0, Prothrombin Time 13.6, Prothromb Time International Ratio 1.00, Activated Partial Thromboplast Time 37.0 04/05/21 12:59: POC Glucose (Misc Panel) 89, POC Sodium (Misc Panel) 142, POC Potassium (Misc Panel) 4.3, POC Chloride (Misc Panel) 107, POC Total CO2 (Misc Panel) 22.0L, POC Blood Urea Nitrogen (Misc Panel 18, POC Ionized Calcium (Misc Panel) 5.2, POC Creatinine (Misc Panel) 1.0, POC Hematocrit (Misc Panel) 25.0L 04/05/21 14:07: Iron Level 12L, Total Iron Binding Capacity 371, Transferrin % Saturation 3.2L, Ferritin 14, Vitamin B12 Level 392, Folate 16.9 04/05/21 14:22: Coronavirus (COVID-19)(PCR) POSITIVEA, Influenza Type A (RT-PCR) NEGATIVE, Influenza Type B (RT-PCR) NEGATIVE, Respiratory Syncytial Virus (PCR) NEGATIVE CBC/BMP Laboratory Tests 04/05/21 12:58 Assessment/Plan Patient is 85 years old female with past medical history of hypertension, COPD not on the oxygen, who is active smoker, hyperlipidemia, arthritis, AAA repair, coronary artery disease, osteoporosis presented to hospital with generalized weakness. Patient stated that for past 3 to 4 days she she has been having generalized weakness associated with shortness of breath on exertion. Also she stated that she had bilateral hip pain, which is chronic. Also patient reported that she has been having black stool for past 2 to 3 weeks. In ER patient was found to have Covid positive test, no leukocytosis, hemoglobin 7.7, MCV 78, iron 12, total iron-binding capacity 371. CT abdomen/pelvis showed Diffuse atherosclerotic disease from abdominal aorta to the runoff vessels in the calf. Significant stenosis of the right common iliac and external iliac vessels with a patent common iliac to right femoral graft. Hip x-ray negative for fracture or dislocation. Stool for occult blood was positive Patient denies fever, chills. She denies diarrhea or dysuria Problems (1) COVID-19 Status: Acute Problem Text: Patient was tested positive for COVID-19 Labs according to COVID-19 protocol Patient does not have cough, she has a good oxygen saturation on room air Supportive treatment (2) Symptomatic anemia Status: Acute Problem Text: Patient developed iron deficiency anemia Stool positive for blood I will give 1 unit of blood Continue to monitor H&H Patient will need follow-up with GI team Plavix on hold (3) Iron deficiency anemia Status: Acute Problem Text: Most likely secondary to slow GI bleed Patient stated that she never had colonoscopy or endoscopy Iron replacement (4) Difficulty walking Status: Chronic Problem Text: PT/OT Patient developed deconditioning secondary to COVID-19 infection and arthritis (5) Hyperlipidemia Status: Chronic Problem Text: Continue statin (6) Generalized weakness Status: Acute Problem Text: Secondary to COVID-19 infection (7) Nicotine abuse Status: Chronic Problem Text: Intensive counseling Offer nicotine patch (8) Coronary artery disease Status: Chronic Problem Text: Patient denies any chest pain Continue home meds Plavix on hold due to GI bleed Plan / VTE VTE Prophylaxis Ordered?: Yes EMMY CORDERO DO Apr 05, 2021 16:33
[2021-04-05] MEDS ORDERED: traMADol 50 MG TAB PO PRN (16:40)
--- OUTSIDE RECORDS SUMMARY | 2021-04-05 16:42 | CCD ---
Author Author [facility] Organization [facility] Address Unknown Phone Unavailable Care Team Providers Care Bag Adjuster Name Role Phone Oscar, P Braden DO [...] P Braden DO Unavailable Unavailable Oscar, P Barden DO Unavailable Unavailable Oscar, P Braden DO [...] is protected by Article 27-F of the [facility] Public Health law. If you continue you may have access to information: Regarding HIV / AIDS; Provided by facilities licensed or operated by the [facility] Office of Mental Health; or Provided by the [facility] Office for People With Developmental Disabilities. If such information is present, then the following [facility] mandated warning applies: This information has been [...] law may result in a fine or group home sentence or both. A general authorization for the release of medical or other information is NOT sufficient authorization for further disc losure. Allergies and Adverse Reactions Type Description Substance Reaction Status Data Source(s ) Food allergy No Known Food Allergies No Known Food Allergies [facility] Family History Family Member Name Family Member Gender Family Member Status Date o f Status Description Data Source(s) Unknown Condition [facility] Unknown Condition [facility] Unknown Condition [facility] Unknown Condition [facility] Unknown Condition [facility] Unknown Condition [facility] Unknown Condition [facility] Unknown Condition [facility] Unknown Male Problem MEDENT ([facility]) Encounters Encounter Providers Location Date Indications Data Source(s ) Outpatient Attender: Braden Ruiz: Braden Moore DO 01/21/2021 11:23:00 AM EDT 01/21/2021 12:09:[address] [facility] Outpatient Attender: Braden Moore DO 01/11/2021 12:22:00 PM EDT [facility] Outpatient Attender: Braden Ruiz: Braden Moore DO 01/11/2021 11:17:00 AM EDT 01/11/2021 11:54:[address] [facility] Outpatient Attender: Braden Ruiz: Braden Moore DO 08/19/2020 10:11:00 AM EDT 08/19/2020 11:09:[address] [facility] Outpatient Attender: Braden Ruiz: Braden Moore DO 08/06/2020 09:45:00 AM EST - 08/06/2020 11:08:[address] [facility] Outpatient Attender: Braden Moore DO 06/23/2020 12:10 :00 PM EST W/ SEE ORDER/I10 [facility] W/ SEE ORDER/I10 Outpatient Attender: Braden Hernandezer: Braden Oscar [place] 06/08/2020 09:48:00 AM EST - 06/08/2020 11:46:[address] [facility] Outpatient Attender: Braden Moore 05/31/2020 12:54:00 PM EST [facility] Immunizations Vaccine Date Status Description Data Source(s) COVID-19 Pfizer 08/27/2020 12:00:00 AM EDT completed [facility] COVID-19 VACCINE Pfizer 08/27/2020 12:00:00 AM EDT completed [facility] Vaccine Series Complete: YESThis Data wa s Submitted to [facility] Via [employer]. COVID-19 Pfizer 08/06/2020 12:00:00 AM EST completed [facility] COVID-19 VACCINE Pfizer 08/06/2020 12:00:00 AM EST completed [facility] Vaccine Series Complete: NOThis Data was Submitted to [facility] Via [employer]. Medications Medication Brand Name Start Date Product Form Dose Route Admi nistrative Instructions Pharmacy Instructions Status Indications Reaction Description Data Source(s) clopidogrel 75 MG Oral Tablet Clopidogrel Clopidogrel 12/31/2020 09:24:14 AM EDT 0 active [facility] Losartan Potassium 50 MG Oral Tablet Losartan 11/22/2020 12:59:06 PM EDT 0 active [facility] Albuterol 0.833 MG/ML / Ipratropium Brom portia 0.167 MG/ML Inhalant Solution Ipratropium-Albuterol Ipratropium-Albuterol 08/09/2020 10:23:04 AM EDT 3 ML active [facility] Albuterol 0.833 MG/ML / Ipratropium Brom portia 0.167 MG/ML Inhalant Solution Ipratropium-Albuterol Ipratropium-Albuterol 08/09/2020 10:23:04 AM EDT 3 ML active [facility] Albuterol 0.833 MG/ML / Ipratropium Brom portia 0.167 MG/ML Inhalant Solution Ipratropium-Albuterol Ipratropium-Albuterol 08/06/2020 11:05:42 AM EST 3 ML active [facility] Albuterol 0.833 MG/ML / Ipratropium Brom portia 0.167 MG/ML Inhalant Solution Ipratropium-Albuterol Ipratropium-Albuterol 08/06/2020 11:05:42 AM EST 3 ML completed [facility] Albuterol 0.833 MG/ML / Ipratropium Brom porita 0.167 MG/ML Inhalant Solution Ipratropium-Albuterol Ipratropium-Albuterol 08/06/2020 11:05:42 AM EST 3 ML completed [facility] Prednisone 20 MG Oral Tablet Prednisone 08/06/2020 11:04:59 AM EST [address] [facility] Prednisone 20 MG Oral Tablet Prednisone 08/06/2020 11:04:59 AM EST [address] [facility] Prednisone 20 MG Oral Tablet Prednisone 08/06/2020 11:04:59 AM EST [address] [facility] Azithromycin 250 MG Oral Tablet Azithromycin 08/06/2020 11:04:49 AM EST 250 MG active [facility] Azithromycin 250 MG Oral Tablet Azithromycin 08/06/2020 11:04:49 AM EST 250 MG completed [facility] Azithromycin 250 MG Oral Tablet Azithromycin 08/06/2020 11:04:49 AM EST 250 MG completed [facility] Losartan Potassium 50 MG Oral Tablet Losartan 08/06/2020 10:25: 20 AM EST 50 MG active [facility] Losartan Potassium 50 MG Oral Tablet Losartan 08/06/2020 10:25: 20 AM EST 50 MG completed [facility] Losartan Potassium 50 MG Oral Tablet Losartan 08/06/2020 10:25: 20 AM EST 50 MG active [facility] clopidogrel 75 MG Oral Tablet Clopidogrel Clopidogrel 08/06/2020 10:25:12 AM EST 75 MG active [facility] clopidogrel 75 MG Oral Tablet Clopidogrel Clopidogrel 08/06/2020 10:25:12 AM EST 75 MG active [facility] clopidogrel 75 MG Oral Tablet Clopidogrel Clopidogrel 08/06/2020 10:25:12 AM EST 75 MG completed [facility] Atenolol 50 MG Oral Tablet Atenolol 08/06/2020 10:25:01 AM EST 0 active [facility] Atenolol 50 MG Oral Tablet Atenolol 08/06/2020 10:25:01 AM EST 0 active [facility] Atenolol 50 MG Oral Tablet Atenolol 08/06/2020 10:25:01 AM EST 0 active [facility] ferrous sulfate 325 MG Oral Tablet Ferrous Sulfate Ferrous S ulfate 08/06/2020 10:20:08 AM EST 325 MG active [facility] ferrous sulfate 325 MG Oral Tablet Ferrous Sulfate Ferrous S ulfate 08/06/2020 10:20:08 AM EST 325 MG completed [facility] ferrous sulfate 325 MG Oral Tablet Ferrous Sulfate Ferrous S ulfate 08/06/2020 10:20:08 AM EST 325 MG active [facility] Atenolol 50 MG Oral Tablet Atenolol 08/03/2020 11:16:39 AM EST 0 completed [facility] Atenolol 50 MG Oral Tablet Atenolol 08/03/2020 11:16:39 AM EST 0 completed [facility] Atenolol 50 MG Oral Tablet Atenolol 08/03/2020 11:16:39 AM EST 0 completed [facility] Calcium ascorbate 500 MG Oral Tablet Ascorbate Calcium (Vitamin C) Ascorbate Calcium (Vitamin C) 06/08/2020 10:17:08 AM EST 500 MG ac [facility] Calcium ascorbate 500 MG Oral Tablet Ascorbate Calcium (Vitamin C) Ascorbate Calcium (Vitamin C) 06/08/2020 10:17:08 AM EST 500 MG ac [facility] Calcium ascorbate 500 MG Oral Tablet Ascorbate Calcium (Vitamin C) Ascorbate Calcium (Vitamin C) 06/08/2020 10:17:08 AM EST 500 MG ac [facility] Calcium ascorbate 500 MG Oral Tablet Ascorbate Calcium (Vitamin C) Ascorbate Calcium (Vitamin C) 06/08/2020 10:17:08 AM EST 500 MG ac [facility] Alendronic acid 70 MG Oral Tablet Alendronate Alendronate 04/13/2020 06:23:15 PM EST 70 MG completed [facility] Alendronic acid 70 MG Oral Tablet Alendronate Alendronate 04/13/2020 06:23:15 PM EST 70 MG completed [facility] Alendronic acid 70 MG Oral Tablet Alendronate Alendronate 04/13/2020 06:23:15 PM EST 70 MG completed [facility] Alendronic acid 70 MG Oral Tablet Alendronate Alendronate 04/13/2020 06:23:15 PM EST 70 MG completed [facility] Losartan Potassium 50 MG Oral Tablet Losartan 10/24/2019 10:33: 32 AM EDT 50 MG completed [facility] Losartan Potassium 50 MG Oral Tablet Losartan 10/24/2019 10:33: 32 AM EDT 50 MG completed [facility] Losartan Potassium 50 MG Oral Tablet Losartan 10/24/2019 10:33: 32 AM EDT 50 MG completed [facility] clopidogrel 75 MG Oral Tablet Clopidogrel Clopidogrel 10/24/2019 10:33:29 AM EDT 75 MG completed [facility] clopidogrel 75 MG Oral Tablet Clopidogrel Clopidogrel 10/24/2019 10:33:29 AM EDT 75 MG completed [facility] clopidogrel 75 MG Oral Tablet Clopidogrel Clopidogrel 10/24/2019 10:33:29 AM EDT 75 MG completed [facility] Atenolol 50 MG Oral Tablet Atenolol 10/24/2019 10:33:24 AM EDT 5 0 MG completed [facility] Atenolol 50 MG Oral Tablet Atenolol 10/24/2019 10:33:24 AM EDT 5 0 MG completed [facility] Atenolol 50 MG Oral Tablet Atenolol 10/24/2019 10:33:24 AM EDT 5 0 MG completed [facility] 30 ACTUAT umeclidinium 0.0625 MG/ACTUAT Dry Powder Inhaler Umeclidinium (Incruse Ellipta) 62.5 mcg/actuation blister with device Umeclidinium (Incruse Ellipta) 62.5 mcg/actuation blister with device 10/02/2019 06:27:00 AM EDT 1 IN H completed [facility] 30 ACTUAT umeclidinium 0.0625 MG/ACTUAT Dry Powder Inhaler Umeclidinium (Incruse Ellipta) 62.5 mcg/actuation blister with device Umeclidinium (Incruse Ellipta) 62.5 mcg/actuation blister with device 10/02/2019 06:27:00 AM EDT 1 IN H completed [facility] 30 ACTUAT umeclidinium 0.0625 MG/ACTUAT Dry Powder Inhaler Umeclidinium (Incruse Ellipta) 62.5 mcg/actuation blister with device Umeclidinium (Incruse Ellipta) 62.5 mcg/actuation blister with device 10/02/2019 06:27:00 AM EDT 1 IN H completed [facility] 30 ACTUAT umeclidinium 0.0625 MG/ACTUAT Dry Powder Inhaler Umeclidinium (Incruse Ellipta) 62.5 mcg/actuation blister with device Umeclidinium (Incruse Ellipta) 62.5 mcg/actuation blister with device 10/02/2019 06:27:00 AM EDT 1 IN H completed [facility] atorvastatin 80 MG Oral Tablet Atorvastatin Atorvastatin 03/03/2019 06:09:30 AM EDT 80 MG completed [facility] atorvastatin 80 MG Oral Tablet Atorvastatin Atorvastatin 03/03/2019 06:09:30 AM EDT 80 MG completed [facility] atorvastatin 80 MG Oral Tablet Atorvastatin Atorvastatin 03/03/2019 06:09:30 AM EDT 80 MG completed [facility] atorvastatin 80 MG Oral Tablet Atorvastatin Atorvastatin 03/03/2019 06:09:30 AM EDT 80 MG completed [facility] Cholecalciferol 81024 UNT Oral Capsule Cholecalciferol (Vitamin D3) Cholecalciferol (Vitamin D3) 12/11/2016 03:53:00 PM EDT 1 CAP completed [facility] Cholecalciferol 01173 UNT Oral Capsule Cholecalciferol (Vitamin D3) Cholecalciferol (Vitamin D3) 12/11/2016 03:53:00 PM EDT 1 CAP completed [facility] Cholecalciferol 41950 UNT Oral Capsule Cholecalciferol (Vitamin D3) Cholecalciferol (Vitamin D3) 12/11/2016 03:53:00 PM EDT 1 CAP completed [facility] Cholecalciferol 42644 UNT Oral Capsule Cholecalciferol (Vitamin D3) Cholecalciferol (Vitamin D3) 12/11/2016 03:53:00 PM EDT 1 CAP completed [facility] Calcium Carbonate 1500 MG / Cholecalcife rol 400 UNT Oral Capsule Calcium Carbonate-Vitamin D3 Calcium Carbonate-Vitamin D3 12/09/2015 06:35:00 PM EDT 1 EACH completed [facility] Calcium Carbonate 1500 MG / Cholecalcife rol 400 UNT Oral Capsule Calcium Carbonate-Vitamin D3 Calcium Carbonate-Vitamin D3 12/09/2015 06:35:00 PM EDT 1 EACH completed [facility] Calcium Carbonate 1500 MG / Cholecalcife rol 400 UNT Oral Capsule Calcium Carbonate-Vitamin D3 Calcium Carbonate-Vitamin D3 12/09/2015 06:35:00 PM EDT 1 EACH completed [facility] Calcium Carbonate 1500 MG / Cholecalcife rol 400 UNT Oral Capsule Calcium Carbonate-Vitamin D3 Calcium Carbonate-Vitamin D3 12/09/2015 06:35:00 PM EDT 1 EACH completed [facility] Insurance Providers Payer name Policy type / Coverage type Policy ID Covered alliance party ID Covered alliance party's relationship to sher Policy Sher Plan Information Medicare [place] Primary [id number] Self 11 [id number] MEDICARE [id number] SP [id number] MEDICARE [id number] SP [id number] A MEDICARE [id number] Armida [id number] MEDICARE A [id number] Self [id number] A Medicare [place] Primary [id number] Self [id number] MEDICARE [id number] SP [id number] A Medicare [place] Medicare Primary [id number] Self [id number] [employer] [id number] Self [id number] [facility] [id number] Armida [id number] [employer] [id number] Self [id number] [employer] [id number] Self [id number] AARP U [id number] Self [id number] AARP U [id number] Self [id number] [employer] [id number] SP [id number] [employer] [id number] SP [id number] [employer] [id number] SP [id number] MEDICARE PART A -I/P [id number] 18 [id number] MEDICARE PART A -O/P [id number] 18 [id number] [facility] HE[facility] CARE OPTIONS-O/P [id number] 18 [id number] [facility] HE[facility] CARE OPTIONS -RECURRING [id number] 18 [id number] MEDICARE -RECURRING [id number] 18 [id number] MEDICARE PART A -O/P [id number] 18 [id number] MEDICARE C [id number] S [id number] [facility] HE[facility] CARE OPTIONS-CLINIC [id number] 18 [id number] MEDICARE PART A -CLINIC [id number] 18 [id number] MEDICARE -O/P [id number] 18 [id number] [facility] HEALTH CARE OPTIONS [id number] SP [id number] AARP O [id number] S [id number] AARP S [id number] S [id number] MEDICARE P [id number] S [id number] A [id number] A Problems, Conditions, and Diagnoses No Information Surgeries/Procedures Procedure Description Date Indications Data Source(s) Computerized axial tomography of thorax with contrast (proce dure) 06/23/2020 02:47:00 PM [facility] Computerized axial tomography of thorax with contrast (proce dure) 06/23/2020 02:47:00 PM [facility] Computerized axial tomography of thorax with contrast (proce dure) 06/23/2020 02:47:00 PM [facility] Computed tomography of abdomen and pelvis with contrast (pro cedure) 06/23/2020 02:46:00 PM [facility] Computed tomography of abdomen and pelvis with contrast (pro cedure) 06/23/2020 02:46:00 PM [facility] Computed tomography of abdomen and pelvis with contrast (pro cedure) 06/23/2020 02:46:00 PM [facility] Results ID Date Data Source [id number] 01/21/2021 11:32:00 AM EDT [facility] Patient Name: FELIX QUIROZ : 1935 Sex: F Pt Unit #: [id number] Location:[facility] Provider: Visit Date/Time: 01/21/21 Primary Insurance: [...] even know where it was.No swallowing difficulties Home Specialist Required: No Accompanied by: Daughter Is patient [...] ary Augmentin. She is here for f/u. [facility] Medical History (Updated 01/11/21 @ 11:55 [...] tabs 0RF Coding Level of Care Code 55901 Est Pt Limited Comp Diagnoses Localized superficial swelling, mass, or lump R22.9 Additional Codes Intake - Is patient in pain?: No (1126F) <Electronically signed by Braden Moore DO> 01/21/21 1208 Name Value Range Interpretation Code Description Data Charlee rce(s) Supporting Document(s) ID Date Data Source [id number] 01/11/2021 02:32:00 PM EDT [facility] [address] [place] [address] [phone] NAME SEX PT STATUS ACCOUNT NUMBER FELIX QUIROZ REG REF [id number] ORDERING PHYSICIAN LOCATION MEDICAL RECORD NO. Braden Moore DO CT [id number] ATTENDING PHYSICIAN DATE OF DATE OF EXAM/TIME [...] rce(s) Supporting Document(s) ID Date Data Source [id number] 01/11/2021 11:25:00 AM EDT [facility] Patient Name: FELIX QUIROZ : 1935 Sex: F Pt Unit #: [id number] Location:[facility] Provider: Visit Date/Time: 01/11/21 Primary Insurance: [...] just notice this am and it itches Home Specialist Required: No Accompanied by: Daughter Is patient [...] female with lump in neck that itches. [facility] Medical History (Updated 01/11/21 @ 11:55 [...] days. I'll call daughter Chayo back at [phone]. Orders: Orders CT Soft tissue neck w/o [...] tabs 0RF Coding Level of Care Code 55968 Est Pt Intermediate Comp Diagnoses Localized superficial swelling, mass, or lump R22.9 <Electronically signed by Braden Moore DO> 01/11/21 1158 Name Value Range Interpretation Code Description Data Charlee rce(s) Supporting Document(s) ID Date Data Source [id number] 08/19/2020 10:33:00 AM EDT [facility] Patient Name: FELIX QUIROZ : 1935 Sex: F Pt Unit #: [id number] Location:[facility] Provider: Visit Date/Time: 08/19/20 Primary Insurance: [...] doing much better and has more ambition. Home Specialist Required: No Accompanied by: Daughter Is patient in pain?: No Allergies No Known Drug Allergies Allergy (Verified 10/27/15 21:39) Medications - Last Reconciled 08/19/20 by Braden Moore DO ascorbate calcium (vitamin C) 500 [...] Chronic obstructive pulmonary disease, unspecified SNOMED Code(s): 30208277 Category: Medical Plan - Braden Moore, DO: COPD much improved. Symptomatically she feels very well. She wants no interv entions like colonoscopy, imaging, specialists, PFT's. F/u 9 months. Let me know if she has more phlegm, difficulty breathing. Coding Level of Care Code 92609 Est Pt Intermediate Comp Exam Detailed Diagnoses COPD (chronic obstructive pulmonary disease) J44.9 <Electronically signed by Braden Moore DO> 08/19/20 1109 Name Value Range Interpretation Code Description Data Charlee rce(s) Supporting Document(s) ID Date Data Source [id number] 08/06/2020 10:18:00 AM EST [facility] Patient Name: FELIX QUIROZ : 1935 Sex: F Pt Unit #: [id number] Location:[facility] Provider: Visit Date/Time: 08/06/20 Primary Insurance: [...] and is unable to bring any up. Home Specialist Required: No Accompanied by: daughter Is patient [...] in her chest that doesn't come up. [facility] Medical History (Updated 06/08/20 @ 11:51 [...] - Iron deficiency anemia, unspecified SNOMED Code(s): 991505364 Category: Medical Plan - Braden Moore, DO: COPD exacerbation with increased phlegm. Duoneb QID and nebulizer. Z- Pack. Prednisone 20mg 2 tabsdaily x 4 days then 1 tab daily. F/u 2 weeks. Anemia. Desires no work up. She is on iron. (2) COPD (chronic obstructive pulmonary disease): Status: Chronic Code(s): J44.9 - Chronic obstructive pulmonary disease, unspecified SNOMED Code(s): 00174093 Category: Medical Orders Other Medications: New: azithromycin [...] tabs 3RF Coding Level of Care Code 95445 Est Pt Intermediate Comp Exam Expanded Problem Focused Diagnoses Microcytic anemia D50.9 COPD (chronic obstructive pulmonary disease) J44.9 <Electronically signed by Braden Moore DO> 08/06/20 1111 Name Value Range Interpretation Code Description Data Charlee rce(s) Supporting Document(s) ID Date Data Source [id number] 06/23/2020 03:37:00 PM EST [facility] [address] [place] [address] [phone] NAME SEX PT STATUS ACCOUNT NUMBER FELIX QUIROZ REG REF [id number] ORDERING PHYSICIAN LOCATION MEDICAL RECORD NO. Braden Moore DO CT [id number] ATTENDING PHYSICIAN DATE OF DATE OF EXAM/TIME [...] rce(s) Supporting Document(s) ID Date Data Source [id number] 06/23/2020 03:09:00 PM EST [facility] [address] [place] [id number] [phone] NAME SEX PT STATUS ACCOUNT NUMBER FELIX QUIROZ REG REF [id number] ORDERING PHYSICIAN LOCATION MEDICAL RECORD NO. Braden Oscar, CT [id number] ATTENDING PHYSICIAN DATE OF DATE OF EXAM/TIME [...] rce(s) Supporting Document(s) ID Date Data Source [id number] 06/23/2020 12:43:00 PM EST [facility] Name Value Range Interpretation Code Description Data Charlee rce(s) Supporting Document(s) Leukocytes [#/volume] in Blood by Automated count 9.2 10*3/uL 4.45-10 .71 N [facility] Erythrocytes [#/volume] in Blood by Automated count 4.05 10*6/uL 4.20-5.40 Below low normal [facility] Hemoglobin [Moles/volume] in Blood 9.0 g/dL 10.7-15.4 Below low no rmal [facility] Hematocrit [Volume Fraction] of Blood by Automated count 32.0 % 37-47 Below low normal [facility] Erythrocyte mean corpuscular volume [Ent itic volume] in Cord blood by Automated count 79.0 fL 80-96 Below low normal [facility] Erythrocyte mean corpuscular hemoglobin [Entitic mass] by Automated count 22.2 pg 27-31 Below low normal [facility] pital Erythrocyte mean corpuscular hemoglobin concentration [Mass/volume] in Cord blood 28.1 g/dL 33-37 Below low normal [facility] Erythrocyte distribution width [Entitic volume] by Automated cou nt 17 % 11-15 Above high normal [facility] Platelets [#/volume] in Blood by Automated count 394 10*3/uL 130-472 N [facility] Platelet mean volume [Entitic volume] in Blood 9.0 fL 9.1-13. 1 Below low normal [facility] Neutrophils/100 leukocytes in Blood by Automated count 60.3 % 41- 77 N [facility] Neutrophils [#/volume] in Blood by Automated count 5.6 U 1.7-7.6 N [facility] Lymphocytes/100 leukocytes in Blood by Automated count 25.6 % 14- 46 N [facility] Lymphocytes [#/volume] in Blood by Automated count 2.4 U 0.6-4.6 N [facility] Monocytes/100 leukocytes in Blood by Automated count 12.1 % 4-12 Above high normal [facility] Monocytes [#/volume] in Blood by Automated count 1.1 U 0.2-1.2 N [facility] Eosinophils/100 leukocytes in Blood by Automated count 1.1 % 0-7 N [facility] Eosinophils [#/volume] in Blood by Automated count 0.1 U 0.0-0.5 N [facility] Basophils/100 leukocytes in Blood by Automated count 0.5 % 0.4-1 .3 N [facility] Basophils [#/volume] in Blood by Automated count 0.1 U 0.0-0.2 N [facility] NUCLEATED RED BLOOD CELL 0 % [facility] NUCLEATED RED BLOOD CELL# 0 U [facility] Immature granulocytes [Presence] in Blood by Automated count 0-2 N [facility] Immature granulocytes [#/volume] in Blood by Automated count 0.0 U 0-0.1 N [facility] Manual Differential panel - Blood NO [facility] ID Date Data Source [id number] 06/23/2020 02:05:00 PM EST [facility] Name Value Range Interpretation Code Description Data Charlee rce(s) Supporting Document(s) Urea nitrogen [Mass/volume] in Serum or Plasma 18 mg/dL 9-23 N [facility] Sodium [Moles/volume] in Serum or Plasma 143 mmol/L 132-146 [facility] Potassium [Moles/volume] in Serum or Plasma 4.0 mmol/L 3.5-5.5 [facility] Chloride [Moles/volume] in Serum or Plasma 113 mmol/L 99-109 Above high normal [facility] Carbon dioxide, total [Moles/volume] in Serum or Plasma 24 mmol/L 20 -31 [facility] Anion gap in Serum or Plasma 10 mmol/L 8-16 [facility] Glucose [Mass/volume] in Serum or Plasma 95 mg/dL 74-106 N [facility] Creatinine 1.0 mg/dL 0.5-1.1 [facility] Glomerular filtration rate/1.73 sq M.pre dicted [Volume Rate/Area] in Serum or Plasma 53 ml/min ABOVE 60 [facility] ital Alanine aminotransferase [Enzymatic acti vity/volume] in Serum or Plasma by With P-5'-P 17 U/L 10-49 N [facility] ital Aspartate aminotransferase [Enzymatic ac tivity/volume] in Serum or Plasma by With P-5'-P 8 U/L 0-33 N [facility] Alkaline phosphatase [Enzymatic activity/volume] in Serum or Plasma 144 U/L 45-129 Above high normal [facility] Calcium [Mass/volume] in Serum or Plasma 8.9 mg/dL 8.5-10.1 [facility] Bilirubin.total [Mass/volume] in Serum or Plasma 0.2 mg/dL 0.3-1.2 Below low normal [facility] Albumin [Mass/volume] in Serum or Plasma by Bromocresol purple (BCP) dye binding method 3.6 g/dL 3.2-4.8 [facility] ital Protein [Mass/volume] in Serum or Plasma 7.0 g/dL 5.7-8.2 [facility] ID Date Data Source [id number] 06/24/2020 02:07:00 PM [facility] Value Range Interpretation Code Description Data Charlee rce(s) Supporting Document(s) Thyroid Peroxidase Abs 1 [IU]/mL <9 [facility] THIS TEST WAS PERFORMED AT:[facility] [address] [id number] MERATI,MD ID Date Data Source [id number] 06/23/2020 02:05:00 PM [facility] Value Range Interpretation Code Description Data Charlee rce(s) Supporting Document(s) Iron [Mass/volume] in Serum or Plasma 55 ug/dL 50-170 [facility] Iron values may be falsely elevated in s deb samples frompatients treated with anticoagulants (e.g., hemodialysispatients) ID Date Data Source [id number] 06/23/2020 02:05:00 PM [facility] Value Range Interpretation Code Description Data Charlee rce(s) Supporting Document(s) C reactive protein [Mass/volume] in Serum or Plasma 8.4 mg/L 0.0-5.0 Above high normal [facility] ID Date Data Source [id number] 06/23/2020 02:05:00 PM [facility] Value Range Interpretation Code Description Data Charlee rce(s) Supporting Document(s) Thyroxine (T4) free [Mass/volume] in Serum or Plasma 0.78 ng/dL 0.89-1.76 Below low normal [facility] ID Date Data Source [id number] 06/23/2020 02:05:00 PM [facility] Name Value Range Interpretation Code Description Data Charlee rce(s) Supporting Document(s) Thyrotropin [Units/volume] in Serum or Plasma by Detec tion limit <= 0.005 mIU/L 0.24 u[iU]/mL 0.35-5.50 Below low normal [facility] spital ID Date Data Source [id number] 06/08/2020 09:43:00 AM [facility] Patient Name: FELIX QUIROZ : 1935 Sex: F Pt Unit #: [id number] Location:[facility] Provider: Visit Date/Time: 06/08/20 Primary Insurance: [...] she only is taking the 5 medications Home Specialist Required: No Accompanied by: Daughter Is patient [...] Screening Screening Have you traveled outside of [facility] or [facility] in the last 14 days.: No [...] Exam - Female: Yes deferred General: deferred [facility] Cervical Spine: normal cervical lordosis Thoracic/Lumbar Spine: [...] Assessment Plan (1) Hypert ension: SNOMED Code(s): 18722847 Category: Medical Plan - Braden Moore, DO: [...] - Iron deficiency anemia, unspecified SNOMED Code(s): 386912499 Category: Medical (3) Fatigue: Status: Acute Code(s): R53.83 - Other fatigue SNOMED Code(s): 45244827 Category: Medical (4) Tobacco dependence: Status: Chronic Code(s): F17.200 - Nicotine dependence, unspecified, uncomplicated SNOMED Code(s): 46232721 Category: Medical (5) COPD (chronic obstructive pulmonary disease): Status: Chronic Code(s): J44.9 - Chronic obstructive pulmonary disease, unspecified SNOMED Code(s): 84430497 Category: Medical (6) Hyperthyroidism: Status: Acute Code(s): E05.90 - Thyrotoxicosis, unspecified without thyrotoxic crisis or storm SNOMED Code(s): 98094924 Category: Medical Orders Other Medications: Discontinued: atorvastatin [...] Hypertension (GEN) Coding Level of Care Code 43544 Est Pt Extended Comp Exam Comprehensive Diagnoses Hypertension I10 Microcytic anemia D50.9 Fatigue R53.83 Tobacco dependence F17.200 COPD (chronic obstructive pulmonary disease) J44.9 Hyperthyroidism E05.90 <Electronically signed by Braden Moore DO> 06/08/20 1149 Name Value Range Interpretation Code Description Data Charlee rce(s) Supporting Document(s) ID Date Data Source [id number] 05/31/2020 01:50:00 PM [facility] Name Value Range Interpretation Code Description Data Charlee rce(s) Supporting Document(s) Hemoglobin A1c [Mass/volume] in Blood 5.6 % 3.8-5.6 N [facility] The following ranges may be u sed for interpretation of results: HGBA1C degree of glucose control: Greater than 8%: Action Suggested * Less than 7%: Goal of Diabetic Therapy Less than 5.6%: NormalFactors such as duration of diabetes, adherence to therapyand the age of the patient should also be considered inassessing the degree of blood glucose control.* High risk of developing ad terminal makeup operator complications such asretinopathy, nephropathy, neuropathy, cardiopathy, etc. Some danger of hypoglycemic reaction in Type I diabetics.Some glucose intolerant individuals and "Sub Clinical"diabetics may demonstrate HGBA1C levels in this area. Glucose mean value [Moles/volume] in Blood Estimated f rom glycated hemoglobin 114 mg/dL [facility] l An A1C of 7% - the goal of diabetic ther apy - is equivalentto an EAG of 154 mg/dl. ID Date Data Source [id number] 05/31/2020 01:57:00 PM [facility] Name Value Range Interpretation Code Description Data Charlee rce(s) Supporting Document(s) Leukocytes [#/volume] in Blood by Automated count 9.5 10*3/uL 4.45-10 .71 N [facility] Erythrocytes [#/volume] in Blood by Automated count 3.66 10*6/uL 4.20-5.40 Below low normal [facility] Hemoglobin [Moles/volume] in Blood 8.4 g/dL 10.7-15.4 Below low no rmal [facility] Hematocrit [Volume Fraction] of Blood by Automated count 29.6 % 37-47 Below low normal [facility] Erythrocyte mean corpuscular volume [Ent itic volume] in Cord blood by Automated count 80.9 fL 80-96 N [facility] ital Erythrocyte mean corpuscular hemoglobin [Entitic mass] by Automated count 23.0 pg 27-31 Below low normal [facility] pital Erythrocyte mean corpuscular hemoglobin concentration [Mass/volume] in Cord blood 28.4 g/dL 33-37 Below low normal [facility] Erythrocyte distribution width [Entitic volume] by Automated cou nt 17 % 11-15 Above high normal [facility] Platelets [#/volume] in Blood by Automated count 386 10*3/uL 130-472 N [facility] Platelet mean volume [Entitic volume] in Blood 9.5 fL 9.1-13.1 N [facility] Neutrophils/100 leukocytes in Blood by Automated count 54.9 % 41- 77 N [facility] Neutrophils [#/volume] in Blood by Automated count 5.2 U 1.7-7.6 N [facility] Lymphocytes/100 leukocytes in Blood by Automated count 30.5 % 14- 46 N [facility] Lymphocytes [#/volume] in Blood by Automated count 2.9 U 0.6-4.6 N [facility] Monocytes/100 leukocytes in Blood by Automated count 12.1 % 4-12 Above high normal [facility] Monocytes [#/volume] in Blood by Automated count 1.1 U 0.2-1.2 N [facility] Eosinophils/100 leukocytes in Blood by Automated count 1.6 % 0-7 N [facility] Eosinophils [#/volume] in Blood by Automated count 0.2 U 0.0-0.5 N [facility] Basophils/100 leukocytes in Blood by Automated count 0.5 % 0.4-1 .3 N [facility] Basophils [#/volume] in Blood by Automated count 0.1 U 0.0-0.2 N [facility] NUCLEATED RED BLOOD CELL 0 % [facility] NUCLEATED RED BLOOD CELL# 0 U [facility] Immature granulocytes [Presence] in Blood by Automated count 0-2 N [facility] Immature granulocytes [#/volume] in Blood by Automated count 0.0 U 0-0.1 N [facility] Manual Differential panel - Blood NO [facility] ID Date Data Source [id number] 05/31/2020 02:01:00 PM EST [facility] Name Value Range Interpretation Code Description Data Charlee rce(s) Supporting Document(s) Urea nitrogen [Mass/volume] in Serum or Plasma 18 mg/dL 9-23 N [facility] Sodium [Moles/volume] in Serum or Plasma 147 mmol/L 132-146 Above high normal [facility] Potassium [Moles/volume] in Serum or Plasma 3.7 mmol/L 3.5-5.5 N [facility] Chloride [Moles/volume] in Serum or Plasma 114 mmol/L 99-109 Above high normal [facility] Carbon dioxide, total [Moles/volume] in Serum or Plasma 25 mmol/L 20 -31 N [facility] Anion gap in Serum or Plasma 12 mmol/L 8-16 N [facility] Glucose [Mass/volume] in Serum or Plasma 115 mg/dL 74-106 Above high normal [facility] Creatinine 1.0 mg/dL 0.5-1.1 N [facility] Glomerular filtration rate/1.73 sq M.pre dicted [Volume Rate/Area] in Serum or Plasma 53 ml/min ABOVE 60 [facility] ital Alanine aminotransferase [Enzymatic acti vity/volume] in Serum or Plasma by With P-5'-P 19 U/L 10-49 [facility] ital Aspartate aminotransferase [Enzymatic ac tivity/volume] in Serum or Plasma by With P-5'-P 13 U/L 0-33 [facility] pital Alkaline phosphatase [Enzymatic activity/volume] in Serum or Plasma 127 U/L 45-129 [facility] Calcium [Mass/volume] in Serum or Plasma 8.9 mg/dL 8.5-10.1 [facility] Bilirubin.total [Mass/volume] in Serum or Plasma 0.2 mg/dL 0.3-1.2 Below low normal [facility] Albumin [Mass/volume] in Serum or Plasma by Bromocresol purple (BCP) dye binding method 3.4 g/dL 3.2-4.8 [facility] ital Protein [Mass/volume] in Serum or Plasma 7.0 g/dL 5.7-8.2 [facility] ID Date Data Source [id number] 05/31/2020 02:01:00 PM EST [facility] Name Value Range Interpretation Code Description Data Charlee rce(s) Supporting Document(s) Triglycerides 313 mg/dL 0-150 Above high normal [facility] Cholesterol 160 mg/dL 120-200 N [facility] HDL Cholesterol 27 mg/dL [facility] HDL Less than 40 mg/dL: Major risk for CHDHDL Greater than 59 mg/dL: Low risk for CHD LDL Cholesterol, Calc 71 mg/dL 0-100 N [facility] ID Date Data Source [id number] 05/31/2020 02:01:00 PM EST [facility] Name Value Range Interpretation Code Description Data Charlee rce(s) Supporting Document(s) Thyrotropin [Units/volume] in Serum or Plasma by Detec tion limit <= 0.005 mIU/L 0.33 u[iU]/mL 0.35-5.50 Below low normal [facility] spital Procedure Social History Code Duration Value Status Description Data Source(s ) 01/11/2021 11:27:53 AM EDT Current every day smoker co mpleted Current every day smoker [facility] Smoking 01/11/2021 11:27:00 AM EDT Current every day smoker co mpleted Current every day smoker [facility] 06/08/2020 10:13:36 AM EST Current every day smoker co mpleted Current every day smoker [facility] 06/08/2020 10:13:36 AM EST Current every day smoker co mpleted Current every day smoker [facility] 06/08/2020 10:13:36 AM EST Current every day smoker co mpleted Current every day smoker [facility] Smoking 06/08/2020 10:13:00 AM EST Current every day smoker co mpleted Current every day smoker [facility] Smoking 06/08/2020 10:13:00 AM EST Current every day smoker co mpleted Current every day smoker [facility] Smoking 06/08/2020 09:13:00 AM EST Current every day smoker co mpleted Current every day smoker [facility]
[2021-04-05] MEDS ORDERED: methylPREDNISolone 125MG 2ML VIAL IV PRN (17:35)
[2021-04-05] MEDS ORDERED: EPINEPHrine INJ 1 MG/ML 1ML AMP IM PRN (17:35)
[2021-04-05] MEDS ORDERED: ALBUTEROL SULFATE 2.5 MG/0.5 ML INH NEB SOLN INH PRN (17:35)
[2021-04-05] MEDS ORDERED: BAMLANIVIMAB 700 MG, ETESEVIMAB 1,400 MG in NS 250 ML IV ONE ×2 (17:35→17:40)
[2021-04-05] MEDS ORDERED: diphenhydrAMINE 50MG/ML VIAL (J1200) IV PRN (17:35)
[2021-04-05] MEDS ORDERED: ALBUTEROL 90 MCG/ACT 8GM HFA INHALER INH PRN ×2 (17:35→17:40)
[2021-04-05] MEDS: NS 1,000 ML IV SCH (20:21)
[2021-04-05] MEDS ORDERED: ASPI-161 PO (20:57)
[2021-04-05] MEDS ORDERED: IPRA0.00 INH (20:57)
[2021-04-05] MEDS ORDERED: HOME MED LIST COMPLETE! XX SCH (21:00)
[2021-04-05] MEDS ORDERED: CASIRIVIMAB (REGN10933) 600 MG, IMDEVIMAB (REGN10987) 600 MG in NS 250 ML IV ONE (21:00)
[2021-04-05] MEDS: IRON POLYSAC (NIFEREX) 150 MG CAP PO SCH (22:16)
[2021-04-06] VITALS: O2SAT 93
[2021-04-06 00:26] VITALS: BP 166/73
[2021-04-06 04:00] VITALS: O2SAT 93
[2021-04-06 06:00] VITALS: BP 144/62
[2021-04-06 07:05] LABS: ALBUMIN 2.9 GM/DL (3.2-5.2); BILIRUBIN,TOTAL 0.3 MG/DL (0.2-1.0); CALCIUM LEVEL 8.5 MG/DL (8.8-10.2); CREATININE FOR GFR 0.97 MG/DL (0.55-1.30); MAGNESIUM LEVEL 1.9 MG/DL (1.8-2.4); POTASSIUM SERUM 4.1 MEQ/L (3.5-5.1); TOTAL PROTEIN 6.7 GM/DL (6.4-8.2)
[2021-04-06 07:17] LABS: BASO % 0.5 % (0.0-1.0); EOS # 0.1 10^3/uL (0.0-0.5); EOS % 0.8 % (0.0-3.0); LYMPH # 0.9 10^3/uL (1.5-5.0); MEAN CORPUSCULAR HEMOGLOBIN 23.8 pg (27.0-33.0); MEAN CORPUSCULAR VOLUME 79.4 fl (80.0-96.0); MONO # 0.9 10^3/uL (0.0-0.8); MONO % 13.4 % (2.0-8.0); NEUTROPHILS # 4.8 10^3/uL (1.5-8.5); NEUTROPHILS % 71.8 % (36.0-66.0); PLATELET COUNT, AUTOMATED 290 10^3/uL (150-450); RED BLOOD COUNT 3.78 10^6/uL (4.00-5.40); WHITE BLOOD COUNT 6.6 10^3/uL (4.0-10.0)
[2021-04-06] MEDS ORDERED: FLUBLOK(EGG FREE)(QUAD)INFLUENZA VACC 0.5ML SYRINGE 18YRS & OLDER IM ONE (09:00)
[2021-04-06] MEDS: CYANOCOBALAMIN 500 MCG TAB PO SCH (09:00)
[2021-04-06] MEDS: IRON POLYSAC (NIFEREX) 150 MG CAP PO SCH ×2 (09:33→20:31)
[2021-04-06] MEDS: ENOXAPARIN 40MG/0.4ML SYRINGE (J1650 PER 10MG) SC SCH (09:34)
[2021-04-06] MEDS ORDERED: IPRATROPIUM 0.5MG/ALBUTEROL 2.5MG INH SOL UD 3ML (DUONEB) INH PRN (13:40)
--- NOTE | 2021-04-06 13:41 | IPNPDOC ---
Text Note Date of Service The patient was seen on 04/06/21. NOTE Subjective: No new acute events overnight. Patient stated that she feels much better today. Objective: GENERAL APPEARANCE: NAD HEENT: no scleral icterus, no JVD, EOMI CARDIOVASCULAR: S1S2 LUNGS: Diminished lung sounds bilaterally ABDOMEN: soft & not tender w palpation MUSCULOSKELETAL: no cyanosis, no swelling INTEGUMENT: no generalized pallor NEUROLOGICAL: cranial nerve function from 2-12 intact, follows commands, speech not dysarthric Assessment/Plan Patient is 85 years old female with past medical history of hypertension, COPD not on the oxygen, who is active smoker, hyperlipidemia, arthritis, AAA repair, coronary artery disease, osteoporosis presented to hospital with generalized weakness. Patient stated that for past 3 to 4 days she she has been having generalized weakness associated with shortness of breath on exertion. Also she stated that she had bilateral hip pain, which is chronic. Also patient reported that she has been having black stool for past 2 to 3 weeks. In ER patient was found to have Covid positive test, no leukocytosis, hemoglobin 7.7, MCV 78, iron 12, total iron-binding capacity 371. CT abdomen/pelvis showed Diffuse atherosclerotic disease from abdominal aorta to the runoff vessels in the calf. Significant stenosis of the right common iliac and external iliac vessels with a patent common iliac to right femoral graft. Hip x-ray negative for fracture or dislocation. Stool for occult blood was positive Patient denies fever, chills. She denies diarrhea or dysuria Problems (1) COVID-19 Patient was tested positive for COVID-19 Labs according to COVID-19 protocol Patient does not have cough, she has a good oxygen saturation on room air Patient received monoclonal antibody infusion yesterday (2) Symptomatic anemia Patient developed iron deficiency anemia Stool positive for blood Hemoglobin stable after 1 unit of blood transfusion yesterday Continue to monitor H&H Patient will need follow-up with GI team Plavix on hold Continue iron supplementation (3) Iron deficiency anemia Most likely secondary to slow GI bleed Patient stated that she never had colonoscopy or endoscopy Iron replacement (4) Difficulty walking PT/OT Patient developed deconditioning secondary to COVID-19 infection and arthritis (5) Hyperlipidemia Continue statin (6) Generalized weakness Secondary to COVID-19 infection (7) Nicotine abuse Intensive counseling Offer nicotine patch (8) Coronary artery disease Patient denies any chest pain Continue home meds Plavix on hold due to GI bleed Hypertension Continue home meds Plan / VTE VTE Prophylaxis Ordered?: Yes VS,Jagjit, I+O VS, Jagjit, I+O Laboratory Tests 04/06/21 06:23 Vital Signs Date Time Temp Pulse Resp B/P (MAP) Pulse Ox O2 Delivery O2 Flow Rate FiO2 04/06/21 06:00 98.0 75 19 144/62 (89) 97 Room Air I&O- Last 24 Hours up to 6 AM 04/06/21 06:00 Intake Total 724 ml Balance 724 ml EMMY CORDERO DO Apr 06, 2021 13:41
[2021-04-06 14:00] VITALS: BP 175/75
[2021-04-06 14:22] LABS: HEMATOCRIT 30.4 % (36.0-47.0); HEMOGLOBIN 9.3 g/dl (12.0-15.5)
[2021-04-06] MEDS: atenoloL 50 MG TAB PO SCH (15:18)
[2021-04-06] MEDS: NS 1,000 ML IV SCH (17:35)
[2021-04-06 20:00] VITALS: BP 164/70; O2SAT 93
[2021-04-06 20:06] LABS: HEMATOCRIT 29.8 % (36.0-47.0); HEMOGLOBIN 9.1 g/dl (12.0-15.5)
[2021-04-06] MEDS ORDERED: LOSARTAN 50MG TABLET PO SCH (21:00)
[2021-04-06] MEDS ORDERED: ASPIRIN 81MG ENTERIC TABLET PO SCH (21:00)
[2021-04-07 01:46] LABS: HEMATOCRIT 29.9 % (36.0-47.0); HEMOGLOBIN 9.3 g/dl (12.0-15.5)
[2021-04-07 04:00] VITALS: BP 138/97
[2021-04-07 07:50] LABS: BASO % 0.5 % (0.0-1.0); EOS % 0.7 % (0.0-3.0); HEMATOCRIT 31.8 % (36.0-47.0); HEMOGLOBIN 9.4 g/dl (12.0-15.5); LYMPH # 1.2 10^3/uL (1.5-5.0); LYMPH % 27.8 % (24.0-44.0); MEAN CORPUSCULAR HEMOGLOBIN 23.4 pg (27.0-33.0); MEAN CORPUSCULAR HGB CONC 29.6 g/dl (32.0-36.5); MEAN CORPUSCULAR VOLUME 79.1 fl (80.0-96.0); MONO # 0.7 10^3/uL (0.0-0.8); MONO % 15.6 % (2.0-8.0); NEUTROPHILS # 2.3 10^3/uL (1.5-8.5); NEUTROPHILS % 55.2 % (36.0-66.0); PLATELET COUNT, AUTOMATED 292 10^3/uL (150-450); RED BLOOD COUNT 4.02 10^6/uL (4.00-5.40); WHITE BLOOD COUNT 4.2 10^3/uL (4.0-10.0)
[2021-04-07 08:00] VITALS: O2SAT 96
[2021-04-07 08:01] LABS: INR 1.12; PROTHROMBIN TIME 14.8 SECONDS (12.7-14.5)
[2021-04-07 08:18] LABS: ALBUMIN 3.2 GM/DL (3.2-5.2); ALT/SGPT 20 U/L (12-78); BILIRUBIN,DIRECT < 0.1 MG/DL (0.0-0.2); BILIRUBIN,TOTAL 0.3 MG/DL (0.2-1.0); BLOOD UREA NITROGEN 18 MG/DL (7-18); CALCIUM LEVEL 9.1 MG/DL (8.8-10.2); CARBON DIOXIDE LEVEL 21 MEQ/L (21-32); CHLORIDE LEVEL 112 MEQ/L (98-107); CPK CREATINE PHOSPHOKINASE 110 U/L (26-192); CREATININE FOR GFR 0.93 MG/DL (0.55-1.30); FERRITIN 112 NG/ML (8-252); GLOMERULAR FILTRATION RATE > 60.0 (>32); GLUCOSE, FASTING 99 MG/DL (70-100); LDH LACTATE DEHYDROGENASE 183 U/L (84-246); NT-PRO BNP 3704 PG/ML (<450); POTASSIUM SERUM 4.3 MEQ/L (3.5-5.1); SODIUM LEVEL 141 MEQ/L (136-145); TOTAL PROTEIN 6.6 GM/DL (6.4-8.2); TROPONIN I 0.06 NG/ML (< 0.10)
[2021-04-07] MEDS: ENOXAPARIN 40MG/0.4ML SYRINGE (J1650 PER 10MG) SC SCH (09:17)
[2021-04-07 09:20] VITALS: BP 127/60
[2021-04-07] MEDS: IRON POLYSAC (NIFEREX) 150 MG CAP PO SCH (09:20)
[2021-04-07] MEDS: atenoloL 50 MG TAB PO SCH (09:20)
[2021-04-07] MEDS: CYANOCOBALAMIN 500 MCG TAB PO SCH (09:21)
[2021-04-07 12:00] VITALS: O2SAT 98
[2021-04-07] MEDS ORDERED: IRON1TAB2 PO (17:48)
--- NOTE | 2021-04-07 17:49 | DS.PDOC ---
Discharge Summary General Date of Admission Apr 05, 2021 at 15:56 Date of Discharge 04/07/21 Discharge Summary PROCEDURES PERFORMED DURING STAY: [None]. ADMITTING DIAGNOSES: COVID-19 Symptomatic anemia Iron deficiency anemia Difficulty walking Hyperlipidemia Generalized weakness Nicotine abuse Coronary artery disease Hypertension DISCHARGE DIAGNOSES: COVID-19 Symptomatic anemia Iron deficiency anemia Difficulty walking Hyperlipidemia Generalized weakness Nicotine abuse Coronary artery disease Hypertension COMPLICATIONS/CHIEF COMPLAINT: Covid-19. HISTORY OF PRESENT ILLNESS: Patient is 85 years old female with past medical history of hypertension, COPD not on the oxygen, who is active smoker, hyperlipidemia, arthritis, AAA repair, coronary artery disease, osteoporosis presented to hospital with generalized weakness. Patient stated that for past 3 to 4 days she she has been having generalized weakness associated with shortness of breath on exertion. Also she stated that she had bilateral hip pain, which is chronic. Also patient reported that she has been having black stool for past 2 to 3 weeks. In ER patient was found to have Covid positive test, no leukocytosis, hemoglobin 7.7, MCV 78, iron 12, total iron-binding capacity 371. CT abdomen/pelvis showed Diffuse atherosclerotic disease from abdominal aorta to the runoff vessels in the calf. Significant stenosis of the right common iliac and external iliac vessels with a patent common iliac to right femoral graft. Hip x-ray negative for fracture or dislocation. Stool for occult blood was positive Patient denies fever, chills. She denies diarrhea or dysuria HOSPITAL COURSE: During the hospital stay the following issue addressed (1) COVID-19 Patient was tested positive for COVID-19 Patient does not have cough, she has a good oxygen saturation on room air Patient received monoclonal antibody infusion (2) Symptomatic anemia Patient developed iron deficiency anemia Stool positive for blood Hemoglobin stable after 1 unit of blood transfusion yesterday Patient will need follow-up with GI team Plavix on hold Continue iron supplementation (3) Iron deficiency anemia Most likely secondary to slow GI bleed Patient stated that she never had colonoscopy or endoscopy Iron replacement (4) Difficulty walking PT/OT Patient developed deconditioning secondary to COVID-19 infection and arthritis (5) Hyperlipidemia Continue statin (6) Generalized weakness Secondary to COVID-19 infection (7) Nicotine abuse Intensive counseling Offer nicotine patch (8) Coronary artery disease Patient denies any chest pain Continue home meds Plavix on hold due to GI bleed Hypertension Continue home meds DISCHARGE MEDICATIONS: Please see below. ALLERGIES: Please see below. PHYSICAL EXAMINATION ON DISCHARGE: VITAL SIGNS: Please see below. GENERAL APPEARANCE: NAD HEENT: no scleral icterus, no JVD, EOMI CARDIOVASCULAR: S1S2 LUNGS: Diminished lung sounds bilaterally ABDOMEN: soft & not tender w palpation MUSCULOSKELETAL: no cyanosis, no swelling INTEGUMENT: no generalized pallor NEUROLOGICAL: cranial nerve function from 2-12 intact, follows commands, speech not dysarthric LABORATORY DATA: Please see below. PROGNOSIS: Fair ACTIVITY: [As tolerated]. DIET: Regular DISPOSITION: 01 Home, Self-Care. DISCHARGE INSTRUCTIONS: Hold Plavix for 1 week, resume Plavix after discussion with PCP ITEMS TO FOLLOWUP ON ON OUTPATIENT: Follow-up with PCP and GI team DISCHARGE CONDITION: [Stable]. TIME SPENT ON DISCHARGE:40 minutes. Vital Signs/I&Os Vital Signs Date Time Temp Pulse Resp B/P (MAP) Pulse Ox O2 Delivery O2 Flow Rate FiO2 04/07/21 12:00 98 Room Air 04/07/21 09:20 69 127/60 04/07/21 04:00 96.5 17 I&O- Last 24 Hours up to 6 AM 04/07/21 06:00 Intake Total 200 ml Output Total 5 ml Balance 195 ml Laboratory Data Labs 24H Laboratory Tests 2 04/07/21 06:12: Immature Granulocyte % (Auto) 0.2, Neutrophils (%) (Auto) 55.2, Lymphocytes (%) (Auto) 27.8, Monocytes (%) (Auto) 15.6H, Eosinophils (%) (Auto) 0.7, Basophils (%) (Auto) 0.5, Neutrophils # (Auto) 2.3, Lymphocytes # (Auto) 1.2L, Monocytes # (Auto) 0.7, Eosinophils # (Auto) 0.0, Basophils # (Auto) 0.0, Nucleated Red Blood Cells % (auto) 0.0, Prothrombin Time 14.8H, Prothromb Time International Ratio 1.12, Activated Partial Thromboplast Time 45.0H, Fibrinogen 452, Anion Gap 8, Glomerular Filtration Rate > 60.0, Calcium Level 9.1, Ferritin 112, Total Bilirubin 0.3, Direct Bilirubin < 0.1, Aspartate Amino Transf (AST/SGOT) 18, Alanine Aminotransferase (ALT/SGPT) 20, Alkaline Phosphatase 92, Lactate Dehydrogenase 183, Total Creatine Kinase 110, Troponin I 0.06, VV-Xvd-Y-Type Natriuretic Peptide 3704H, Total Protein 6.6, Albumin 3.2, Albumin/Globulin Ratio 0.9L, Procalcitonin <0.05 CBC/BMP Laboratory Tests 04/06/21 19:42 04/07/21 01:33 04/07/21 06:12 Discharge Medications Scheduled Aspirin (Aspirin EC) 81 Mg Tablet.dr, 81 MG PO QHS, (Reported) Atenolol (Atenolol) 50 Mg Tab, 50 MG PO DAILY, (Reported) Clopidogrel Bisulfate (Clopidogrel) 75 Mg Tab, 75 MG PO DAILY, (Reported) Losartan Potassium (Losartan Potassium) 50 Mg Tab, 50 MG PO QHS, (Reported) Scheduled PRN Ipratropium/Albuterol Sulfate (Iprat-Albut 0.5-3(2.5) mg/3 ml) 3 Ml Ampul.neb, 3 ML INH Q4H PRN for SHORTNESS OF BREATH, (Reported) Allergies Coded Allergies: No Known Allergies (Unverified , 08/14/16) EMMY CORDERO DO Apr 07, 2021 17:49
== END 2021-04-07 14:36 | disposition home or self-care (01) | DRG 179 ==
LOC: M ED 07:48 → M ED INP 15:56 → ENRESERV 16:30 → M 4MAIN 17:35
PROVIDERS: ADMIT Internal Medicine; ATTEND Internal Medicine
PROC: 30233N1 Transfusion of Nonautologous Red Blood Cells into Peripheral Vein, Percutaneous Approach (ICD-10-PCS; principal; 2021-04-05)
PROC: XW033G6 Introduction of REGN-COV2 Monoclonal Antibody into Peripheral Vein, Percutaneous Approach, New Technology Group 6 (ICD-10-PCS; 2021-04-05)
DX: U07.1 COVID-19 (principal); D50.9 Iron deficiency anemia, unspecified; R26.2 Difficulty in walking, not elsewhere classified; E78.5 Hyperlipidemia, unspecified; R53.1 Weakness; I25.10 Atherosclerotic heart disease of native coronary artery without angina pectoris; F17.200 Nicotine dependence, unspecified, uncomplicated; J44.9 Chronic obstructive pulmonary disease, unspecified; I10 Essential (primary) hypertension; M81.0 Age-related osteoporosis without current pathological fracture; Z79.02 Long term (current) use of antithrombotics/antiplatelets; Z79.82 Long term (current) use of aspirin; Z79.899 Other long term (current) drug therapy